=== PATIENT | female | born 2000 | race Caucasian/White ===

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

== ENCOUNTER 2021-07-01 14:19 | Emergency (ER) | payer MEDICAID, SELFPAY ==
[2021-07-01 14:20] VITALS: BP 124/83; PULSE 113; RESP 18; TEMP 37.2; O2SAT 98; BMI 24.4
--- NOTE | 2021-07-01 14:40 | CT_ITS ---
STUDY: CT ABDOMEN AND PELVIS WITHOUT CONTRAST REASON FOR EXAM: Female, 21 years old. Pain RADIATION DOSAGE (If Supplied By Facility): CTDIvol = ( 6.06 ) mGy, DLP = ( 280.28 ) mGycm TECHNIQUE: Transaxial images were obtained from the dome of the diaphragm to the symphysis pubis without oral contrast, and without intravenous contrast. Sagittal and coronal images were reconstructed. Individualized dose optimization techniques were used for this CT. COMPARISON: . 04/05/2019 FINDINGS: Lung bases demonstrate no consolidative process. No pericardial effusion. Liver and spleen demonstrate no acute abnormalities. Pancreas and adrenal glands are within normal limits. Nonobstructive bowel gas pattern. Cystic structure in the right adnexa possibly an ovarian cyst measuring up to 2.9 cm. Kidneys demonstrate no evidence for hydronephrosis. Normal caliber of the abdominal aorta. Small hiatal hernia. Sclerosis along the sacroiliac joints. No acute osseous abnormalities in the lumbar spine. Schmorl''s nodes in the lower thoracic and upper lumbar spine IMPRESSION: No evidence for acute appendicitis, diverticulitis or bowel obstruction. No evidence for obstructive uropathy. Right-sided ovarian cyst Electronically Signed: Zen Ellison MD at 16:05 EDT , CT/Abdomen/Pelvis without Cont
--- NOTE | 2021-07-01 14:41 | EDS_ITS ---
HPI HPI - GI History of Present Illness Chief Complaint: Abd Pain Detail of Chief Complaint: Abdominal pain that started 4 days ago Informant: patient Abdominal Pain/Flank Pain Current Severity: Severe Narrative Narrative: Patient presents to the emergency department complaint of abdominal pain insert 4 days ago. Patient describes a burning achy pain that is severe to the right lower quadrant mostly. Today she started noticing it more on the left side as well. She denies any fevers or chills or sweats. She denies any vomiting or diarrhea. Patient states that she missed 3 of her control pills but has not missed a menstrual period. Patient denies any vomiting or diarrhea. She had similar pain in the past and it was related to an ovarian cyst she thinks. Patient denies any abnormal vaginal discharge or bleeding. Prior similar symptoms: Yes [facility] Medical History (Updated 07/01/21 @ 15:[address] Randall Villela, DO) Migraine Home Medications NK 03/12/20 [History Last Taken Unknown] Allergy/AdvReac Type Severity Reaction Status Date / Time peanut Allergy Intermediate Hives Verified 07/01/21 14:21 Penicillins Allergy Intermediate Hives Verified 07/01/21 14:21 Social History Smoking Status: Current every day smoker tobacco type: e-cigarettes ROS ROS ED Constitutional Constitutional ED: Reports systems reviewed and no addt'l complaints, except as documented; Denies body ache(s), change in weight or chills Eyes Eyes: Denies acute decrease in peripheral vision, change in vision, double vision or loss of vision ENT ENT ED: Reports none; Denies ear pain, lip swelling, loss taste/smell, neck pain, otalgia or sore throat Cardiovascular Cardiovascular: Reports none; Denies abdominal pain, chest pain with activity, leg edema, lightheadedness, palpitations, rapid heart rate or syncope Respiratory/Chest Respiratory/Chest: Reports none; Denies change in mental status, dry cough, dys pnea, hemoptysis, shortness of breath at rest or shortness of breath with exertion Gastrointestinal Gastrointestinal: Reports none and abdominal pain; Denies change in stool character, diarrhea, hematemesis, hematochezia, melena, rectal bleeding or vomiting Genitourinary Genitourinary ED: Reports none; Denies abdominal discomfort, anuria, dysuria, genital pain or polyuria Musculoskeletal Musculoskeletal: Reports none; Denies arthralgias, back pain, difficulty walking, extremity pain, muscle weakness or myalgias Integumentary Reports none; Denies abscess or rash Neurologic Neurologic: Reports none; Denies abnormal gait, confusion, focal weakness, frequent falls, headache(s), loss of vision, numbness, paresthesias, radicular pain, vertigo or weakness Psychiatric Psychiatric: Reports systems reviewed and no addt'l complaints, except as documented and none; Denies behavioral changes, confusion, difficulty concentrating, hallucinations, suicidal ideation, tactile hallucinations or visual hallucinations Endocrine Endocrinology: Denies none, cold intolerance, excessive sweating, fatigue or heat intolerance Hematologic/Lymphatic Hematologic/Lymphatic: Reports none; Denies anemia, easy bleeding or easy bruising Allergic/Immunologic Allergic/Immunologic ED: Denies as per HPI, none, lip swelling, mouth swelling, throat swelling, tongue swelling or hives EXAM Physical Exam Const Vital Signs: 07/01/21 14:20 Temperature 99 F Temperature Source Temporal Pulse Rate 113 H Respiratory Rate 18 Blood Pressure 124/83 H Blood Pressure Mean 96 Pulse Ox 98 Oxygen Delivery Method Room Air Positive well nourished and well developed General Appearance ED: well developed and NAD HEENT Reports TM's clear and moist mucous membranes normocephalic and atraumatic; Negative for trauma or tenderness Tympanic Membrane ED: Yes TM's clear Eyes PERRL and EOMs intact bilaterally General Eye ED: Negative for pale conjunctiva or scleral icterus Neck no lymphadenopathy, supple and no JVD General: Negative for tenderness Chest Wall inspection of chest normal and palpation of chest normal Chest: Negative for tenderness Resp normal respiratory effort and clear to auscultation bilaterally Effort and Inspection: Negative for respiratory distress or pain with movement Auscultation: Negative for rhonchi, wheezes or diminished lung sounds Cardio regular rate, regular rhythm, S1 normal heart sound, S2 normal heart sound and no murmurs Peripheral Pulses: pulses 2+ throughout GI normal to inspection, nondistended, normoactive bowel sounds, soft to palpation, non-tender, non-distended and no masses GI Narrative: Patient with diffuse tenderness palpation over the right lower quadrant as well as the right upper quadrant and left lower quadrant. There is no rebound, rigidity, or peritoneal signs. Palpation: tender Back/Spine no CVA tenderness and no thoracic nor lumbar tenderness Extremity normal to inspection General Extremety ED: Negative for edema General Extremity: Negative for edema Neuro oriented x3, CN's II-XII intact bilaterally, no sensory deficits noted and gait normal Sensorium / Orientation: awake, alert, oriented to person, oriented to place and oriented to time Motor Exam: strength 5/5 throughout and strength abnormal Psych mental status grossly normal Skin no rashes or lesions noted and no wounds MDM MDM MDM Narrative Medical decision making narrative: IV line established on arrival. Patient did not want thing for pain. CBC with differential was normal. Other lab results and CT as well as urine pending. Care of patient turned over to evening physician awaiting lab and CT results and final disposition Lab Data Attestation: I reviewed the patient's lab results. Labs: Laboratory Results - last 24 hr 07/01/21 14:54 WBC 9.3 RBC 4.95 Hgb 16.5 H Hct 47.3 H MCV 95.6 MCH 33.3 H MCHC 34.9 RDW Std Deviation 47.0 H RDW Coeff of Frances 13.2 Plt Count 289 MPV 8.9 Immature Gran % (Auto) 0.300 Neut % (Auto) 72.7 H Lymph % (Auto) 21.3 [place] % (Auto) 4.3 Eos % (Auto) 1.0 Baso % (Auto) 0.4 Absolute Neuts (auto) 6.8 Absolute Lymphs (auto) 1.98 Nucleated RBC % 0 Discharge Plan Triage Chief Complaint: Abd Pain ED Provider: Randall Villela Dx/Rx/DC Orders Clinical Impression: Abdominal pain Prescriptions: No Action NK RF: 0 Primary Care Provider: Care Physician,No Primary Referrals: Care Physician,No Primary [Primary Care Provider] -
[2021-07-01] MEDS: 0.9% Normal Saline 1,000 ML 125 ML IV (15:01)
[2021-07-01 15:02] LABS: Absolute Lymphocyte Count 1.98 X10^3/uL (0.83-4.51); Absolute Neutrophil Count 6.8 X10^3/uL (2.0-7.7); Basophil# 0.04 X10^3/uL; Basophil% 0.4 % (0-1); Eosinophil# 0.09 X10^3/uL; Hematocrit 47.3 % (37-47); Hemoglobin 16.5 g/dL (12.0-15.0); Lymphocyte # 1.98 X10^3/ul (0.83-4.51); Lymphocyte % 21.3 % (19-41); Mean Corp Hgb Conc 34.9 g/dL (32-36); Mean Corpuscular Hgb 33.3 pg (27.0-32.0); Mean Corpuscular Volume 95.6 fL (81-99); Mean Platelet Vol. 8.9 fl (6.2-12.0); Monocyte% 4.3 % (0-10); NRBC Flagged by Analyzer 0 % (0-5); Neutrophil # 6.77 X10^3/uL (2.7-7.7); Neutrophil % 72.7 % (47-70); Platelet Count 289 K/mm3 (150-450); RBC Distribution Width CV 13.2 % (11.6-14.6); Red Blood Count 4.95 M/mm3 (4.2-5.4); White Blood Count 9.3 K/mm3 (4.4-11.0)
[2021-07-01 15:21] LABS: Mucous, Urine 0 SEEN /hpf (<or=2+)
[2021-07-01 15:22] LABS: ALB/GLOB Ratio 1.1 RATIO (0.9-2.4); AST(SGOT) 20 U/L (15-37); Alanine Aminotransfer ALT/SGPT 22 U/L (13-56); Albumin, Serum 4.1 g/dL (3.2-5.0); Alkaline Phosphatase 137 U/L (45-117); Anion Gap 6 (5-15); BUN 6 mg/dL (7-18); BUN/Creat Ratio 7.2 RATIO (10-20); Calcium,Total 9.5 mg/dL (8.5-10.1); Chloride 105 mmol/L (98-107); Creatinine, Serum 0.84 mg/dL (0.55-1.02); EST Glomerular Filtration Rate 92 mL/min (>60); Est Glom Filt Rate - Afr Amer 111 mL/min (>60); Estimated Creatinine Clearance 76.74 ml/min; Globulin 3.7 g/dL (2.2-4.2); Glucose 93 mg/dL (74-106); Potassium 3.7 mmol/L (3.5-5.1); Protein, Total 7.8 g/dL (6.4-8.2); Sodium Level 137 mmol/L (136-145)
[2021-07-01 15:27] LABS: Internal QC Validated? YES +Cl - CLEAR BKGD; Pregnancy, Serum, hCG Quali. NEGATIVE Negative
[2021-07-01 15:28] LABS: Color, Urine Yellow (Yellow); Glucose, Dipstick Normal (Normal); Ketone-Dipstick Negative (Negative); Leukocyte Esterase-Dipstick 100 /ul (Negative); Nitrite-Dipstick Negative (Negative); Occult Blood-Urine 25 /ul (Negative); Protein-Dipstick Negative (Negative); Urine Bilirubin Dipstick Negative (Negative); Urine Clarity Sl. Cloudy (Clear); Urine Urobilinogen Normal (Normal)
[2021-07-01 15:41] LABS: Squamous Epithelial Cells - UA 0-5 SEEN /hpf (5-10); White Blood Cells 0-5 SEEN /hpf (0-5)
[2021-07-01 15:42] LABS: Bacteria RARE /hpf (None Seen)
[2021-07-01 15:43] LABS: Red Blood Cells-Urine 0-5 SEEN /hpf (0-5)
[2021-07-01] MEDS: Ketorolac 30 MG/ML Syringe IV (16:03)
== END 2021-07-01 16:23 | disposition home or self-care (01) ==
PROVIDERS: Emergency Provider Emergency Medicine; Visit Provider Emergency Medicine
DX: N83.201 Unspecified ovarian cyst, right side (principal); F17.290 Nicotine dependence, other tobacco product, uncomplicated
CPT/HCPCS: 74176; 80053; 81001; 84703; 85025; 96361; 96374; 99283; J7030; A4216

== ENCOUNTER 2021-11-05 21:39 | Emergency (ER) | payer MEDICAID, SELFPAY ==
[2021-11-05 21:40] VITALS: BP 106/75; PULSE 115; RESP 15; TEMP 36.8; O2SAT 99; BMI 22.6
--- NOTE | 2021-11-05 22:31 | US_ITS ---
STUDY: FIRST TRIMESTER OBSTETRICAL ULTRASOUND REASON FOR EXAM: Female, 21 years old RLQ pain / ? ectopic LMP: 09/14/2021 TECHNIQUE: Transvaginal TECHNICAL QUALITY: Adequate. PRIOR ULTRASOUND: None. FINDINGS: There is visualization of a single gestational sac in a normal intrauterine position. The mean sac diameter (MSD) measures 7 mm, indicating an estimated gestational age (EGA) of 5 weeks, 3 days. The gestational sac shape is within normal limits. There is no demonstrated yolk sac. The placenta is non-visualized. There is no demonstrated embryo ( pole). The estimated gestation age (EGA) by LMP is 7 weeks, 3 days. The estimated date of delivery (JOAO) by LMP is 06/21/2022. The estimated gestation age (EGA) by US is 5 weeks, 3 days. The estimated date of delivery (JOAO) by US is 07/05/2022. The uterus measures 8.9 x 5.3 x 4.2. There is no demonstrated uterine fibroid. The cervix is closed. The right ovary measures 3.7 x 2.8 x 2.9 cm. Corpus luteal cyst measuring 2 x 2 x 2.3 cm. There is no visualized right adnexal mass or complex lesion. The left ovary measures 3 x 2.2 x 1.6 cm. There is no left ovarian cyst. There is no visualized left adnexal mass or complex lesion. There is a moderate amount of fluid in the cul de sac. US/Transvaginal w/Preg US IMPRESSION: Intrauterine gestational sac is noted. There is no evidence of yolk sac or pole at this time. Likely early . No adnexal masses, however moderate free fluid. Recommend clinical correlation and quantitative beta-hCG. Ectopic is not fully excluded versus blighted ovum. Electronically Signed: Elmo An DO at 23:57 EDT ,
[2021-11-05 22:38] LABS: Mucous, Urine 0 SEEN /hpf (<or=2+)
[2021-11-05 22:44] LABS: Color, Urine Yellow (Yellow); Glucose, Dipstick Normal (Normal); Ketone-Dipstick Negative (Negative); Leukocyte Esterase-Dipstick Negative /ul (Negative); Nitrite-Dipstick Negative (Negative); Occult Blood-Urine 50 /ul (Negative); Protein-Dipstick 15 mg/dl (Negative); Urine Bilirubin Dipstick Negative (Negative); Urine Clarity Clear (Clear); Urine Urobilinogen 1 mg/dl (Normal)
[2021-11-05] MEDS: 0.9% Normal Saline 1,000 ML 999 ML IV (22:44)
--- NOTE | 2021-11-05 22:47 | ED.VIS.FEGU ---
HPI HPI - Female History of Present Illness Chief Complaint: Female C/O Narrative Narrative: Patient is a female approximately 8 weeks . She states she came down with sore throat muscle aches congestion cough and headache about 6 days ago and tested positive for COVID 4 days ago. She states she is been dealing with that but then on Saturday developed pain in the right lower quadrant which increased today. She states there is been no vaginal bleeding or discharge no dysuria. She denies any nausea or vomiting or diarrhea associated with this. She states that she contacted her OB who advised her to come the hospital secondary to her increasing pain in the right lower quadrant and therefore she presents at this time. [facility] Medical History Migraine Ovarian cyst Allergy/AdvReac Type Severity Reaction Status Date / Time peanut Allergy Intermediate Hives Verified 11/05/21 21:43 Penicillins Allergy Intermediate Hives Verified 11/05/21 21:43 Social History Smoking Status: Current every day smoker tobacco type: e-cigarettes ROS ROS ED Constitutional Constitutional ED: Denies chills or fever(s) ENT ENT ED: Reports sore throat Cardiovascular Cardiovascular: Denies chest pain Respiratory/Chest Respiratory/Chest: Reports cough; Denies dyspnea Gastrointestinal Gastrointestinal: Reports abdominal pain; Denies diarrhea, nausea or vomiting Genitourinary Genitourinary ED: Reports other Details: No vaginal bleeding or discharge ; Denies dysuria or hematuria Musculoskeletal Musculoskeletal: Reports myalgias Integumentary Denies rash Neurologic Neurologic: Reports headache(s) Hematologic/Lymphatic Hematologic/Lymphatic: Denies easy bleeding or easy bruising EXAM Physical Exam Const Vital Signs: 11/05/21 21:40 Temperature 98.3 F Temperature Source Temporal Pulse Rate 115 H Respiratory Rate 15 Blood Pressure 106/75 Blood Pressure Mean 85 Pulse Ox 99 Oxygen Delivery Method Room Air Positive well nourished and well developed General Appearance ED: well developed HEENT Reports moist mucous membranes HEENT Narrative: Cobblestoning the posterior pharynx consistent with sinus drainage but no airway edema or compromise. No signs of secondary infection in the posterior pharynx Eyes PERRL and EOMs intact bilaterally Neck supple Neck Narrative: Positive anterior cervical of adenopathy Resp normal respiratory effort and clear to auscultation bilaterally Cardio regular rate and regular rhythm Rate: other Other Details: Radial pulses are plus 2 out of 4 bilaterally are equal and symmetric GI non-distended GI Narrative: Pain with palpation greatest in the right lower quadrant with voluntary guarding at the site. Positive heel strike psoas and obturator sign. Auscultation: normoactive bowel sounds Palpation: soft Back/Spine no CVA tenderness Extremity normal to inspection Neuro oriented x3, CN's II-XII intact bilaterally and no sensory deficits noted Sensorium / Orientation: alert Psych mental status grossly normal Skin no rashes or lesions noted MDM MDM MDM Narrative Medical decision making narrative: Patient presented to the ER afebrile. She denied any vaginal bleeding or discharge. She did have report of headache sore throat and myalgias but has recently been diagnosed with COVID. With her pain in the right lower quadrant there is concern this could be an ectopic versus appendicitis or kidney stone. Patient did not have any flank pain however to suggest stone. She also did not have generalized abdominal pain migrating to the right lower quadrant nor is she having anorexia or loose stool symptoms to suggest this. I discussed the case with her [employer] and we elected to start with an ultrasound to rule out ectopic . The ultrasound showed an intrauterine gestation without cardiac activity. This is most like related to young gestational age. There is also a right-sided ovarian cyst which is most likely cause of the patient's pain. I informed the OB of the patient's laboratory results as well as her ultrasound result. At this time as the ultrasound is indicating there is an intrauterine gestation without obvious ectopic they do not feel there is need for further work-up. I discussed the patient's +1 bacteria in the urine but as she does not having dysuria OB wants to wait and see if her urine does show signs of infection their evaluation and therefore I would not provide antibiotic. The patient was informed of her laboratory and ultrasound results. She does agree to follow-up with [employer] for repeat blood work as well as possible ultrasound but agrees to return to the ER if she has worsening symptoms. Lab Data Attestation: I reviewed the patient's lab results. Labs: Laboratory Results - last 24 hr 11/05/21 11/05/21 11/05/21 22:05 22:30 22:41 WBC 2.6 L RBC 4.11 L Hgb 13.4 Hct 38.2 MCV 92.9 MCH 32.6 H MCHC 35.1 RDW Std Deviation 41.5 RDW Coeff of Frances 12.2 Plt Count 121 L MPV 9.9 Immature Gran % (Auto) 0.000 Neut % (Auto) 35.9 L Lymph % (Auto) 50.4 H Pickett % (Auto) 12.9 H Eos % (Auto) 0.4 Baso % (Auto) 0.4 Absolute Neuts (auto) 0.9 L Absolute Lymphs (auto) 1.29 Nucleated RBC % 0 Differential Comment SCANNED Sodium Potassium Chloride Carbon Dioxide Anion Gap BUN Creatinine Estim Creat Clear Calc Est GFR (MDRD) Af Amer Est GFR (MDRD) Non-Af BUN/Creatinine Ratio Glucose Lactic Acid 0.7 Calcium HCG, Quant Urine Color Yellow Urine Clarity Clear Urine pH 6.0 Ur Specific Hockley 1.020 Urine Protein 15 H Urine Glucose (UA) Normal Urine Ketones Negative Urine Occult Blood 50 H Urine Nitrite Negative Urine Bilirubin Negative Urine Urobilinogen 1 H Ur Leukocyte Esterase Negative Urine RBC 0-5 SEEN Urine WBC 0-5 SEEN Ur Squamous Epith Cells 0-5 SEEN Urine Bacteria 1+ Urine Mucus 0 SEEN 11/05/21 11/05/21 22:41 22:41 WBC RBC Hgb Hct MCV MCH MCHC RDW Std Deviation RDW Coeff of Frances Plt Count MPV Immature Gran % (Auto) Neut % (Auto) Lymph % (Auto) Pickett % (Auto) Eos % (Auto) Baso % (Auto) Absolute Neuts (auto) Absolute Lymphs (auto) Nucleated RBC % Differential Comment Sodium 138 Potassium 3.5 Chloride 107 Carbon Dioxide 25.0 Anion Gap 6 BUN 11 Creatinine 0.61 Estim Creat Clear Calc 116.35 Est GFR (MDRD) Af Amer 160 Est GFR (MDRD) Non-Af 132 BUN/Creatinine Ratio 18.0 Glucose 81 Lactic Acid Calcium 8.7 HCG, Quant 2118 H Urine Color Urine Clarity Urine pH Ur Specific Hockley Urine Protein Urine Glucose (UA) Urine Ketones Urine Occult Blood Urine Nitrite Urine Bilirubin Urine Urobilinogen Ur Leukocyte Esterase Urine RBC Urine WBC Ur Squamous Epith Cells Urine Bacteria Urine Mucus Radiography Diagnostic Testing: Clinical Impression(s) from Imaging Studies Obstetrics Ultrasound 11/05/21 22:31 IMPRESSION: Intrauterine gestational sac is noted. There is no evidence of yolk sac or pole at this time. Likely early . No adnexal masses, however moderate free fluid. Recommend clinical correlation and quantitative beta-hCG. Ectopic is not fully excluded versus blighted ovum. Electronically Signed: Elmo An at 23:57 EDT , Discharge Plan Triage Chief Complaint: Female C/O ED Provider: Joe Quezada Dx/Rx/DC Orders Clinical Impression: Abdominal pain during in first trimester, Ovarian cyst Instructions: Ovarian Cysts, ED Abdominal Pain, Early Primary Care Provider: Care Physician,No Primary Referrals: Kylee De La Cruz CNM [Med Staff - Adv Practice Prof] - 3-5 Days Care Physician,No Primary [Primary Care Provider] - Activity Restrictions/Additional Instructions: Please follow-up with your [employer] for repeat evaluation. If you develop worsening pain fever over 100.4 or vaginal bleeding please return to the ER for repeat evaluation Disposition Disposition: Home, Self Care
[2021-11-05 22:54] LABS: Absolute Lymphocyte Count 1.29 X10^3/uL (0.83-4.51); Absolute Neutrophil Count 0.9 X10^3/uL (2.0-7.7); Basophil# 0.01 X10^3/uL; Basophil% 0.4 % (0-1); Eosinophil# 0.01 X10^3/uL; Eosinophils% 0.4 % (0-5); Hematocrit 38.2 % (37-47); Hemoglobin 13.4 g/dL (12.0-15.0); Lymphocyte # 1.29 X10^3/ul (0.83-4.51); Lymphocyte % 50.4 % (19-41); Mean Corp Hgb Conc 35.1 g/dL (32-36); Mean Corpuscular Hgb 32.6 pg (27.0-32.0); Mean Corpuscular Volume 92.9 fL (81-99); Mean Platelet Vol. 9.9 fl (6.2-12.0); Monocyte# 0.33 X10^3/uL; Monocyte% 12.9 % (0-10); NRBC Flagged by Analyzer 0 % (0-5); Neutrophil # 0.92 X10^3/uL (2.7-7.7); Neutrophil % 35.9 % (47-70); POSITIVE DIFFERENTIAL YES; POSITIVE MORPHOLOGY YES; Platelet Count 121 K/mm3 (150-450); RBC Distribution Width CV 12.2 % (11.6-14.6); RBC Distribution Width SD 41.5 fl (35.1-43.9); Red Blood Count 4.11 M/mm3 (4.2-5.4); White Blood Count 2.6 K/mm3 (4.4-11.0)
[2021-11-05 23:05] LABS: Differential Indicated SCAN CRITERIA MET
[2021-11-05 23:09] LABS: Bacteria 1+ /hpf (None Seen); Red Blood Cells-Urine 0-5 SEEN /hpf (0-5); Squamous Epithelial Cells - UA 0-5 SEEN /hpf (5-10); White Blood Cells 0-5 SEEN /hpf (0-5)
[2021-11-05 23:13] LABS: Differential Comment SCANNED
[2021-11-05 23:15] LABS: Anion Gap 6 (5-15); BUN 11 mg/dL (7-18); Calcium,Total 8.7 mg/dL (8.5-10.1); Chloride 107 mmol/L (98-107); Creatinine, Serum 0.61 mg/dL (0.55-1.02); EST Glomerular Filtration Rate 132 mL/min (>60); Est Glom Filt Rate - Afr Amer 160 mL/min (>60); Estimated Creatinine Clearance 116.35 ml/min; Glucose 81 mg/dL (74-106); Potassium 3.5 mmol/L (3.5-5.1); Sodium Level 138 mmol/L (136-145)
[2021-11-05 23:27] LABS: Lactic Acid 0.7 mmol/L (0.4-1.9)
[2021-11-05 23:41] LABS: hCG Titer Quant., Serum 2118 mIU/mL (1-3)
[2021-11-06 00:34] VITALS: BP 97/64; PULSE 87
== END 2021-11-06 00:35 | disposition home or self-care (01) ==
PROVIDERS: Emergency Provider Emergency Medicine; Visit Provider Emergency Medicine
DX: O99.891 Other specified diseases and conditions complicating pregnancy (principal); R10.31 Right lower quadrant pain; O98.511 Other viral diseases complicating pregnancy, first trimester; U07.1 COVID-19; O34.81 Maternal care for other abnormalities of pelvic organs, first trimester; N83.201 Unspecified ovarian cyst, right side; O99.331 Smoking (tobacco) complicating pregnancy, first trimester; F17.290 Nicotine dependence, other tobacco product, uncomplicated; Z3A.08 8 weeks gestation of pregnancy
CPT/HCPCS: 76817; 80048; 81001; 83605; 84702; 85025; 86900; 86901; 96360; 99282; J7030; A4216

== ENCOUNTER 2022-04-24 12:35 | Outpatient (CLI) | payer MEDICAID, SELFPAY ==
[2022-04-24 12:41] VITALS: BMI 22.4
[2022-04-24 12:42] VITALS: BP 97/52; PULSE 98; PULSE 99; TEMP 36.2; O2SAT 100
[2022-04-24] MEDS: Acetaminophen 500 MG Tablet 1000 MG PO (13:47)
--- NOTE | 2022-04-24 17:15 | OB.TRI.NOTE ---
HPI - General HPI Narrative FRANK ARCHULETA, is a 22 F at 29.1 weeks who presents to triage for extended monitoring due to a fall. Patient stated she slipped and fell down 6 steps and landed on butt and side. No abdominal trauma. Positive movement. Denies any cramps or contractions. Denies any vaginal bleeding or loss of fluid. Maternal Data Information JOAO Calculator Estimated Delivery Date Method Current WG Current Estimate 07/09/22 Manual 29w 1d PFSH PFSH Medical History Migraine Ovarian cyst Allergy/AdvReac Type Severity Reaction Status Date / Time peanut Allergy Intermediate Hives Verified 11/05/21 21:43 Penicillins Allergy Intermediate Hives Verified 11/05/21 21:43 Social History Smoking Status: Current every day smoker tobacco type: e-cigarettes History Elective abortions Hx Para 0 Spontaneous abortions Hx # Term Pregnancies Ectopic pregnancies Hx # Pregnancies Multiple births # of living children ROS Eyes Eyes: Denies blurry vision Cardiovascular Cardiovascular: Reports none; Denies chest pain at rest, chest pain with activity or dizziness Respiratory/Chest Respiratory/Chest: Denies cough or dyspnea Gastrointestinal Gastrointestinal: Reports none and other; Denies diarrhea or vomiting Genitourinary Genitourinary: Denies dysuria Musculoskeletal Musculoskeletal: Reports none Integumentary Integumentary: Reports none; Denies rash Neurologic Neurologic: Denies dizziness, headache(s) or other visual disturbances Psychiatric Psychiatric: Reports none Physical Exam Const alert and no apparent distress General Appearance: cooperative Orientation / Consciousness: awake Exam Limitations: no limitations HEENT normocephalic Eyes General Eye: normal appearance of both eyes Neck full ROM Chest inspection of chest normal Resp normal respiratory effort and normal air movement Effort and Inspection: symmetric chest movement Auscultation: clear to auscultation bilaterally Cardio regular rate GI soft to palpation, non-tender and non-distended Inspection: and other Back/Spine normal ROM Extremity full ROM, normal capillary refill and no calf tenderness Skin no rashes or lesions noted Neuro oriented x3 and CN's II-XII intact bilaterally Psych mental status grossly normal NST FHR Rate Baby A Baseline: 145 Variability:: Moderate Accelerations:: 10 x 10 Decelerations:: None NST Reactive:: Appropriate for gestational age Assessment & Plan (1) 29 weeks gestation of : (2) Fall: PLAN: Plan Extended monitoring NST appropriate for gestational age TOCO showed 1 contraction- patient did not feel contraction D/C home with follow up in office for scheduled visit
== END 2022-04-24 14:25 | disposition home or self-care (01) ==
LOC: WPOUT 12:39 → WP 12:40
PROVIDERS: Visit Provider Advanced Practice Midwife
DX: Z04.3 Encounter for examination and observation following other accident (principal); O99.333 Smoking (tobacco) complicating pregnancy, third trimester; F17.290 Nicotine dependence, other tobacco product, uncomplicated; Z3A.29 29 weeks gestation of pregnancy
CPT/HCPCS: 59025; 59050; 99221; G0378

== ENCOUNTER 2022-06-20 09:25 | Inpatient (IN) | payer MEDICAID, SELFPAY ==
[2022-06-20] VITALS (47 sets, daily range): BP systolic 86–143; BP diastolic 51–77; PULSE 69–150; TEMP 36.2–36.6; O2SAT 74–100; BMI 23.1
[2022-06-20 09:22] LABS: ROM Internal Control Test YES-OK TO RESULT pt. (Internal QC)
[2022-06-20 09:23] LABS: ROM Patient Test POSITIVE (Negative)
[2022-06-20] MEDS: Lactated Ringers 1,000 ML 50 ML IV (10:16)
[2022-06-20 10:41] LABS: Absolute Lymphocyte Count 1.75 X10^3/uL (0.83-4.51); Absolute Neutrophil Count 7.1 X10^3/uL (2.0-7.7); Basophil# 0.03 X10^3/uL; Basophil% 0.3 % (0-1); Eosinophil# 0.04 X10^3/uL; Eosinophils% 0.4 % (0-5); Hematocrit 38.3 % (37-47); Hemoglobin 12.9 g/dL (12.0-15.0); Lymphocyte # 1.75 X10^3/ul (0.83-4.51); Lymphocyte % 18.6 % (19-41); Mean Corp Hgb Conc 33.7 g/dL (32-36); Mean Corpuscular Hgb 32.8 pg (27.0-32.0); Mean Corpuscular Volume 97.5 fL (81-99); Mean Platelet Vol. 10.4 fl (6.2-12.0); Monocyte# 0.48 X10^3/uL; Monocyte% 5.1 % (0-10); NRBC Flagged by Analyzer 0 % (0-5); Neutrophil # 7.11 X10^3/uL (2.7-7.7); Neutrophil % 75.4 % (47-70); Platelet Count 205 K/mm3 (150-450); RBC Distribution Width CV 13.8 % (11.6-14.6); RBC Distribution Width SD 49.4 fl (35.1-43.9); Red Blood Count 3.93 M/mm3 (4.2-5.4); White Blood Count 9.4 K/mm3 (4.4-11.0)
[2022-06-20] MEDS: Oxytocin 15 Units/NS 250ml 15 UNITS/250 ML IV.SOLN 2 UNITS IV (11:23)
[2022-06-20 11:39] LABS: Syphilis Antibodies Non-reactive
[2022-06-20 12:55] LABS: Amphetamine Urine VISTA NEGATIVE (<1000 ng/mL); Barbiturate Urine VISTA NEGATIVE (< 200 ng/mL); Benzodiazepine Urine VISTA NEGATIVE (< 200 ng/mL); Cocaine Urine VISTA NEGATIVE (< 300 ng/mL); Ecstacy Urine VISTA NEGATIVE (< 500 ng/mL); Methadone Urine VISTA NEGATIVE (< 300 ng/mL); PCP Urine VISTA NEGATIVE (< 25 ng/mL); THC Urine VISTA NEGATIVE (< 50 ng/mL); Vista UDS pH Range 7
--- NOTE | 2022-06-20 12:58 | HP.PCM.OB_ITS ---
HPI - General General Date of Admission: 06/20/22 Date of Service: 06/20/22 Chief Complaint: SROM HPI Narrative FRANK ARCHULETA is a 22-year-old 2 para 1-0-0-1 with EDC 07/09/2022 presents complaining of spontaneous rupture membranes earlier this morning. Some irregular contractions. No gross vaginal bleeding. Patient has a significant past medical history of depression, nicotine use, nausea and vomiting early in . Patient has remote history of drug use but denies any drug use during the or in 2 to 3 years. She has a remote history of chlamydia that was treated and repeat testing was negative Maternal Data Information JOAO Calculator Estimated Delivery Date Method Current WG Current Estimate 07/09/22 Manual 37w 2d Final JOAO: 07/09/22 Gestational age: 37 2 [facility] Medical History (Updated 06/20/22 @ 13:[address] Carrie Ahmadi MD) Depression Depression Migraine Ovarian cyst depression Home Medications [id number] 1 mg tablet 1 tab PO DAILY 04/24/22 [History Last Taken 04/24/22 10:00] Allergy/AdvReac Type Severity Reaction Status Date / Time peanut Allergy Intermediate Hives Verified 04/24/22 18:21 Penicillins Allergy Intermediate Hives Verified 04/24/22 18:21 Social History Smoking Status: Former smoker History Elective abortions Hx Para 1 Spontaneous abortions Hx # Term Pregnancies Ectopic pregnancies Hx # Pregnancies Multiple births # of living children ROS Constitutional Constitutional: Denies fatigue, fever(s) or malaise Eyes Eyes: Denies change in vision ENT HEENT: Denies dizziness or headache(s) Cardiovascular Cardiovascular: Denies chest pain, dyspnea or lightheadedness Respiratory/Chest Respiratory/Chest: Denies cough or dyspnea Gastrointestinal Gastrointestinal: Denies change in bowel habits Genitourinary Genitourinary: Denies burning urination or genital lesions Integumentary Integumentary: Denies rash Neurologic Neurologic: Denies confusion, dizziness, headache(s), numbness or weakness Vital Signs Vital Signs Vital Signs: 06/20/22 10:28 06/20/22 10:28 06/20/22 11:09 Pulse Rate 93 96 Blood Pressure 106/66 BP Systolic 106 BP Diastolic 66 Pulse Ox 06/20/22 11:09 06/20/22 11:33 06/20/22 11:33 Pulse Rate 91 Blood Pressure 86/54 L BP Systolic 86 BP Diastolic 54 Pulse Ox 100 06/20/22 11:33 06/20/22 12:14 06/20/22 12:14 Pulse Rate 96 Blood Pressure 101/60 BP Systolic 101 BP Diastolic 60 Pulse Ox 99 Weight Weight: 57.266 kg Body Mass Index (BMI) 23.1 Physical Exam Const alert and no apparent distress General Appearance: cooperative HEENT normocephalic Resp normal respiratory effort Cardio regular rate GI soft to palpation GI Narrative: gravid, nontender, appropriate for gestational age Extremity no calf tenderness General Extremity: edema Skin no wounds Rashes: No rashes noted Psych activity/motor behavior normal Labs Labs Labs: Blood Type A POSITIVE Antibody Screen NEGATIVE Hct 38.3 % (37-47) Hgb 12.9 g/dL (12.0-15.0) Obstetrics US Syphilis Total Ab Non-reactive Rhogam given: No Assessment & Plan (1) 37 weeks gestation of : (2) High risk multigravida in third trimester: (3) SROM (spontaneous rupture of membranes):
[2022-06-20] MEDS: LACTATED RINGERS 500 ML 999 ML IV (17:23)
[2022-06-20] MEDS: fentaNYL-bupivacaine (epidural) 100 ML BAG EPIDURAL ×2 (18:28→23:05)
[2022-06-20] MEDS: Lactated Ringers 1,000 ML 250 ML IV (20:21)
[2022-06-20] MEDS: Acetaminophen 500 MG Tablet PO (23:05)
--- NOTE | 2022-06-20 23:46 | EX.PCM.OBRPT ---
Assessment & Plan (1) 37 weeks gestation of : (2) SROM (spontaneous rupture of membranes): (3) (spontaneous vaginal delivery): Maternal Data Information JOAO Calculator Estimated Delivery Date Method Current WG Current Estimate 07/09/22 Manual 37w 2d Vaginal Delivery Maternal Presentation Maternal Presentation: Spontaneous Rupture of Membranes and Medically Indicated Induction Type of Induction: Pitocin Medical Reason for Induction: Premature Rupture of Membranes Operative Information Date of Procedure: 06/20/22 Pre-Operative Diagnosis: labor Post-Operative Diagnosis: same Surgery / Procedure Performed: Spontaneous Vaginal Delivery Type of Anesthesia: Epidural Special Medications: none Drain: Cintron to straight drain Estimated Blood Loss: 300 Time of Delivery: 23:32 Findings Description of Procedure: A vigorous female was delivered JOHN over an intact perineum. The remainder the was delivered with maternal pushing and gentle traction only in less than 15 seconds. The Pitocin infusion was initiated for active management of the third stage. The cord was clamped and cut after 1 minute. The was attended to by the waiting nursing staff. The placenta was delivered spontaneously and intact. The cervix and vagina were intact. Sponge and needle counts were correct. A vaginal sweep was completed by me. Presentation: JHON Amniotic Membrane Rupture Type: Spontaneous Amniotic Fluid Description: Clear Placental Delivery Description: Spontaneous Placenta Disposition: [facility] Cord Vessel Description: 3 Vessels Cord Entanglement: None A Gender: Female (Caleb) (1 minute): 8 (5 minute): 9 Delayed Cord Clamping: Yes Post Vaginal Delivery Medications Given After Delivery: IV Pitocin Episiotomy Description: None Laceration: None Complication Complications: None
[2022-06-21] VITALS (19 sets, daily range): BP systolic 89–112; BP diastolic 51–61; PULSE 63–98; RESP 16–18; TEMP 36.2–36.6; O2SAT 92–100
[2022-06-21] MEDS: Oxytocin 15 Units/NS 250ml 15 UNITS/250 ML IV.SOLN 83 UNITS IV (00:34)
[2022-06-21] MEDS: Ibuprofen 600 MG Tablet PO ×2 (08:49→15:18)
[2022-06-21] MEDS: Senna/Docusate Sodium 1 Tablet PO (08:49)
--- NOTE | 2022-06-21 12:38 | PCM.PN.OB ---
Subjective Subjective Patient seen at bedside. Feeling good. Denies any pain. Ambulating and voiding without difficulty. Bottle feeing . Anticipate discharge home tomorrow. Objective Data Objective Data Vital Signs: Vital Signs Temp Pulse Resp BP Pulse Ox O2 Del Method 98 F 75 18 89/59 L 98 Room Air 06/21/22 08:30 06/21/22 08:30 06/21/22 08:30 06/21/22 08:30 06/21/22 06:00 06/21/22 06:00 Oxygen Delivery Method Room Air Weight: 126 lb 4 oz Body Mass Index (BMI) 23.1 Intake & Output: Intake and Output for Last 24 Hours 06/19/22 06/20/22 06/21/22 23:59 23:59 23:59 Intake Total 1586.34 / 2498.84 1326.16 / 1326.16 Output Total 1000 / 1000 400 / 400 Balance 586.34 / 1498.84 926.16 / 926.16 Lab / Micro Data Result Diagrams: 06/20/22 10:16 Labs: Laboratory Results - last 24 hr 06/20/22 11:35: Urine Opiates Screen NEGATIVE, Urine Methadone Screen NEGATIVE, Ur Barbiturates Screen NEGATIVE, Ur Phencyclidine Scrn NEGATIVE, Ur Amphetamines Screen NEGATIVE, MDMA (Ecstasy) Screen NEGATIVE, U Benzodiazepines Scrn NEGATIVE, Urine Cocaine Screen NEGATIVE, U Cannabinoids Screen NEGATIVE ROS Eyes Eyes: Denies blurry vision, change in vision or spots in vision ENT HEENT: Denies dizziness or headache(s) Cardiovascular Cardiovascular: Denies abdominal pain, chest pain or dyspnea Respiratory/Chest Respiratory/Chest: Denies cough, dyspnea, shortness of breath at rest or shortness of breath with exertion Gastrointestinal Gastrointestinal: Denies abdominal pain, diarrhea or vomiting Genitourinary Genitourinary: Denies change in urinary stream, difficulty urinating or dysuria Musculoskeletal Musculoskeletal: Reports none Integumentary Integumentary: Denies rash Neurologic Neurologic: Denies dizziness, headache(s), memory loss or weakness Physical Exam Const alert and no apparent distress General Appearance: cooperative and comfortable Exam Limitations: no limitations HEENT normocephalic Eyes General Eye: normal appearance of both eyes Neck full ROM General: normal visual inspection Chest Chest: symmetrical chest wall rise Resp normal respiratory effort and normal air movement Effort and Inspection: symmetric chest movement Auscultation: clear to auscultation bilaterally Cardio regular rate and regular rhythm GI normal to inspection, nondistended, normoactive bowel sounds Back/Spine normal ROM Extremity full ROM and no calf tenderness General Extremity: normal exam except as noted Skin no rashes or lesions noted Neuro CN's II-XII intact bilaterally Psych mental status grossly normal Assessment & Plan (1) (spontaneous vaginal delivery): PLAN: Plan PPD 1 Routine care Pain control Anticipate discharge home tomorrow
[2022-06-21] MEDS: Acetaminophen 500 MG Tablet 1000 MG PO (22:12)
[2022-06-22] MEDS: Ibuprofen 600 MG Tablet PO (00:07)
[2022-06-22 04:55] VITALS: BP 96/48; PULSE 62; RESP 16; TEMP 36.3; O2SAT 99
[2022-06-22 07:39] VITALS: BP 95/54; PULSE 78; RESP 16; TEMP 36.4; O2SAT 98
--- NOTE | 2022-06-22 08:40 | PCM.PN.OB ---
Subjective Subjective Denies complaints Objective Data Objective Data Vital Signs: Vital Signs Temp Pulse Resp BP Pulse Ox O2 Del Method 97.5 F L 78 16 95/54 L 98 Room Air 06/22/22 07:39 06/22/22 07:39 06/22/22 07:39 06/22/22 07:39 06/22/22 07:39 06/22/22 07:39 Oxygen Delivery Method Room Air Weight: 126 lb 4 oz Body Mass Index (BMI) 23.1 Intake & Output: Intake and Output for Last 24 Hours 06/20/22 06/21/22 06/22/22 23:59 23:59 23:59 Intake Total 1586.34 / 2498.84 1326.16 / 1326.16 Output Total 1000 / 1000 400 / 400 Balance 586.34 / 1498.84 926.16 / 926.16 Lab / Micro Data Result Diagrams: 06/20/22 10:16 Physical Exam Const alert, oriented x3 and no apparent distress HEENT normocephalic GI soft to palpation, non-tender and non-distended GI Narrative: fundus firm, mid & below umbilicus Extremity normal to inspection and no calf tenderness Assessment & Plan (1) (spontaneous vaginal delivery): COMMENT: PPD#2 PLAN: D/c home
--- NOTE | 2022-06-22 08:41 | DCINST_ITS ---
Discharge Instructions Diet Discharge Diet: No restrictions Activity Discharge Activity: May Shower May resume sexual activity in: 6 weeks Weight Bearing Status: Weight bearing as tolerated Dressing / Incision Call your doctor if you observe: Fever of 101 or Higher, Coldness, Increased Pain, Change in Color, Inability to urinate, Inability to have a bowel movement, Using more than 1 pad per hour, Shortness of breath, Dizziness, Fainting spells, Chest pain, Increased palpitations (irregular heartbeat), Calf discomfort and Uncontrolled pain Follow Up Care Please Follow Up With: Karoline Messina MD When: Follow up in 2 and 6 weeks for visits. Test Results: Test results from this visit will be discussed in further detail at your follow- up appointment, if applicable. Discharge Plan Admission Admit Date/Time: 06/20/22 09:25 Primary Reason for Your Visit: Vaginal delivery Attending Provider: Carrie Ahmadi Primary Care Provider: Care Physician,No Primary Discharge Orders/Prescriptions Prescriptions: New acetaminophen 500 mg Tablet 1,000 mg PO Q6H PRN PRN (Reason: Pain 1-10 Or Fever) Qty: 0 0RF ibuprofen 600 mg Tablet 600 mg PO Q6H PRN PRN (Reason: Pain Score 1-3) Qty: 0 0RF Continued [id number] 1 mg Tablet 1 tab PO DAILY Referrals / Follow Up: Care Physician,No Primary [Primary Care Provider] - Disposition Disposition (needs filled in before D/C Order can be placed): Home, Self Care
== END 2022-06-22 10:10 | disposition home or self-care (01) | DRG 560 ==
LOC: WPOUT 09:27 → WP 09:27
PROVIDERS: Admitting Provider Obstetrics & Gynecology; Referring Provider Obstetrics & Gynecology; Visit Provider Obstetrics & Gynecology
DX: O42.92 Full-term premature rupture of membranes, unspecified as to length of time between rupture and onset of labor (principal); Z37.0 Single live birth; F17.290 Nicotine dependence, other tobacco product, uncomplicated; O99.334 Smoking (tobacco) complicating childbirth; Z3A.37 37 weeks gestation of pregnancy; Z87.59 Personal history of other complications of pregnancy, childbirth and the puerperium
CPT/HCPCS: 59025; 59050; 80307; 84112; 85025; 86780; 86850; 86900; 86901; 99221; J7120; G0378

== ENCOUNTER 2022-10-05 10:59 | Day surgery (SDC) | payer MEDICAID, SELFPAY ==
--- NOTE | 2022-09-24 12:46 | PCM.HP.BLA ---
History and Physical Date of Admission: 10/05/22 HPI: The patient is a 22 year old female presenting for pre-operative visit. She is scheduled for laparoscopic bilateral salpingectomy, for sterilization on 10/05/22. Procedure discussed along with risks, benefits and complications. Other alternatives discussed for management. Consent form signed? Yes. ? ? PAST MEDICAL HISTORY PAST MEDICAL HISTORY Diagnosis Date ? Allergic rhinitis, cause unspecified 11/16/2010 ? Anemia during in third trimester 10/06/2019 ? Chlamydia 2019 ? Depression ? ? fracture 10 years old ? right radius ? History of chlamydia 05/14/2019 ? History of drug abuse in remission (HCC) ? ? History of illicit drug use 05/14/2019 ? 2Patient admits to using multiple drugs in the past. States her drug of choice was Meth. Has used Heroin , cocaine as well. Has not used for about 3 years. FOB also a recovering addict. Discused risks of illicit drugs in . Advised patient we may do random drug screens in and when she presents to L&D. TKRN ? PMH - PAST MEDICAL HISTORY OF 03/2006 ? normal color vision ? depression ? ? ? PAST SURGICAL HISTORY PAST SURGICAL HISTORY Procedure Laterality Date ? NONE ? CURRENT MEDICATIONS Current Outpatient Medications Medication Sig Dispense Refill ? Norethindrone, Contraceptive, (ORTHO MICRONOR) 0.35 mg tablet Take 1 tablet by mouth once daily. 84 tablet 2 ? No current facility-administered medications for this visit. ? ? ALLERGIES: Environmental [Other] and Penicillins ? PERSONAL HISTORY: SOCIAL HISTORY Social History ? Tobacco Use ? Smoking status: Former ? ? Years: 4.00 ? ? Types: Cigarettes ? ? Quit date: 2019 ? ? Years since quittin.4 ? Smokeless tobacco: Never Vaping Use ? Vaping Use: current everyday user ? Start date: 05/14/2018 ? Substances: Nicotine ? Devices: Disposable Substance Use Topics ? Alcohol use: Not Currently ? Drug use: Not Currently ? ? Types: Crystal Meth, Cocaine, Opiates, Heroin, Amphetamines, Marijuana ? FAMILY HISTORY: FAMILY HISTORY FAMILY HISTORY Problem Relation Age of Onset ? Allergies Mother ? ? other (lung issues) Mother ? ? Cancer Father 40 ? Large B cells Lymphoma ? No Known Problems Brother ? ? No Known Problems Maternal Grandmother ? ? Cancer Maternal Grandfather ? ? skin and lung ? Lung Cancer Paternal Grandmother ? ? Cancer Paternal Grandfather ? REVIEW OF SYMPTOMS: GENERAL: denies fevers or chills ENDOCRINOLOGY: has not been on steroids Cardiology : denies palpitations or chest pain Respiratory: denies SOB or cough Hematology: denies history of prolonged bleeding or easy bruising or VTE Allergy: Denies history of personal or family history of allergy to anesthesia ? PHYSICAL EXAMINATION: ? VITALS: Last menstrual period 09/14/2021, not currently . ? GENERAL: The patient is well nourished, well hydrated in no acute distress. , The patient is oriented to time, place, and person. NECK: Supple. No lynphadenopathy, normal thyroid, no thyromegaly. LUNGS: Clear to auscultation bilaterally. no wheezes, rhonchi or rales HEART: Regular rate and rhythm, Normal heart sounds, and No murmurs or gallops ? IMPRESSION: Sterilization request ? PLAN: The risks/benefits/alternatives and personal involved for the planned laparoscopic bilateral salpingectomy were reviewed with the patient. Her questions were answered to her satisfaction and she desires to proceed. Consent was signed. I reviewed with her postop instructions and expectations. We reviewed that if they are any unanticipated anatomical abnormalities that would make bilateral salpingectomy difficult or increased risk of injury to other structures, would proceed with tubal sterilization in another fashion. Patient is comfortable with this if necessary. ? I have reviewed and updated past medical and surgical history, medications and allergies Assessment & Plan Assessment/Plan (1) Sterilization:
[2022-10-05] VITALS (8 sets, daily range): BP systolic 82–103; BP diastolic 42–63; PULSE 63–89; RESP 16; TEMP 36.2–37.1; O2SAT 99–100; BMI 19.3
[2022-10-05 11:30] LABS: Hematocrit 41.1 % (37-47); Hemoglobin 14.4 g/dL (12.0-15.0); Mean Corpuscular Volume 94.1 fL (81-99); Mean Platelet Vol. 9.4 fl (6.2-12.0); Platelet Count 235 K/mm3 (150-450); RBC Distribution Width CV 12.1 % (11.6-14.6); RBC Distribution Width SD 41.9 fl (35.1-43.9); Red Blood Count 4.37 M/mm3 (4.2-5.4); White Blood Count 5.8 K/mm3 (4.4-11.0)
[2022-10-05] MEDS: Lactated Ringers 1,000 ML 15 ML IV ×2 (11:32→15:11)
[2022-10-05 11:33] LABS: Internal QC Validated? YES +Cl - CLEAR BKGD; Pregnancy, Urine Negative Negative
[2022-10-05] MEDS: Ketorolac 30 MG/ML Syringe IV (11:33)
[2022-10-05] MEDS: Acetaminophen 500 MG Tablet 1000 MG PO (11:33)
[2022-10-05 11:40] LABS: International Normalized Ratio 1.1; Prothrombin Time (Protime)PT. 14.1 SECONDS (11.7-14.9)
[2022-10-05 11:41] LABS: Partial Thromboplast Time 32.4 Seconds (24.1-36.2)
[2022-10-05 12:11] LABS: AST(SGOT) 12 U/L (15-37); Alanine Aminotransfer ALT/SGPT 14 U/L (13-56); Albumin, Serum 4.1 g/dL (3.2-5.0); Alkaline Phosphatase 93 U/L (45-117); Globulin 3.1 g/dL (2.2-4.2); Protein, Total 7.2 g/dL (6.4-8.2)
--- NOTE | 2022-10-05 13:00 | FALS_PTH ---
PATIENT: FRANK ARCHULETA LOC: [facility] [place] U#:[id number] AGE/SX: 22/F ROOM: RE10/05/[address]: Dr. Carrie Ahmadi MD : 2000 BED: DIS: 10/05/2022 SPEC #: [id number] RECD: 10/05/22 15:29 STATUS: DOROTHY RESuzy #: [id number] NIKKI: 10/05/22 13:[address]: Carrie Ahmadi DEPT: SURGICAL PATHOLOGY RECD BY: Daina Dowell ENTERED: 10/08/22 08:45 SP TYPE: FALL TUBES OTHR DR: No Primary Care Phys Tissues: Fallopian tube Procedures: Surgery Specimen Level II Surgery Specimen Level IV HEADER OPERATION: Laparoscopic salpingectomy PRE-OP DIAGNOSIS: Sterilization TISSUE SUBMITTED: Bilateral tubes MICROSCOPIC DIAGNOSIS Right and left fallopian tubes, salpingectomies: Complete cross sections of two fallopian tubes. One fallopian tube with benign para tubal cyst. AM;am 7/11/23 MICROSCOPIC DESCRIPTION Slides are reviewed. GROSS DESCRIPTION Received in fixative is one container labeled with the patient's name and designated bilateral fallopian tubes. The specimen consists of bilateral fallopian tubes including fimbrial ends measuring 6 cm in length and 0.5 cm in diameter and 6.0 cm in length and 0.7 cm in diameter. The fallopian tubes are not identified as right or left. Sections reveal unremarkable cut surfaces. A paratubal cyst is also noted measuring 0.5 cm in greatest dimension. [employer] sections are submitted in two cassettes with each cassette containing one fallopian tube, cassette 2 also contains the paratubal cyst./ SJ: 10/08/22 TC:5 CPT: 37778 , 54150
--- NOTE | 2022-10-05 13:42 | PCM.DC ---
Discharge Instructions Diet Discharge Diet: No restrictions (Increase fluid intake for the next 48 hours.) Activity Additional Activity Instructions:: Ambulate often the next week after surgery. Nothing in the vagina for 5 days. Dressing / Incision Call your doctor if your incision/area has: Continuous Slow Oozing, Sudden Increased Bleeding, Increased Pain/ Swelling, Increased Redness and Foul Smelling Discharge Call your doctor if you observe: Fever of 101 or Higher Additional Dressing/Incision Instructions:: Your incisions have skin glue. it can get wet. Leave it on for at least 10 days. Follow Up Care Please Follow Up With: Carrie Ahmadi MD When: Call [phone] for follow-up appointment as needed or send a [employer] message for quesions Test Results: Test results from this visit will be discussed in further detail at your follow-up appointment, if applicable. Discharge Plan Admission Primary Reason for Your Visit: laparoscopic tubal Attending Provider: Carrie Ahmadi Primary Care Provider: Janice Sheth Primary Discharge Orders/Prescriptions Prescriptions: New ibuprofen [ibuprofen] 600 mg tablet 600 mg PO Q6H PRN (Reason: Pain) 10 Days Qty: 30 1RF hydrocodone-acetaminophen 5-325 mg tablet 1 tab PO .qid PRN (Reason: pain) 3 Days Qty: 1 0RF Continued diphenhydramine HCl [Allergy (diphenhydramine)] 25 mg capsule 25 mg PO QHS PRN PRN (Reason: sleep) acetaminophen-caffeine 500-65 mg tablet 1 tab PO Q12H PRN (Reason: pain) Discontinued norethindrone (contraceptive) 0.35 mg tablet 0.35 mg PO DAILY Patient Comments: TAKE 1 TABLET BY MOUTH ONCE DAILY Referrals / Follow Up: Care Physician,Janice Primary [Primary Care Provider] - Disposition Disposition (needs filled in before D/C Order can be placed): Home, Self Care
[2022-10-05] MEDS: Bupivacaine Mpf 0.5% 30 ML VIAL (13:47)
--- NOTE | 2022-10-05 14:09 | OP.PCM_ITS ---
Problems Associated Problem List Diagnoses (1) Sterilization: Report of Operation Date of Procedure: 10/05/22 Pre-Operative Diagnosis: sterilization request Post-Operative Diagnosis: same Surgery/Procedure Performed:: laparoscopic bilateral salpingectomy Description of Surgical Findings:: Normal uterus, tubes and ovaries. Normal cervix and vagina Surgeon: Carrie Ahmadi yarn texture machine operator: None Type of Anesthesia: General Anesthesiologist: Adam Peguero Special Medications: none Specimen's removed: bilateral fallopian tubes Drains: none Estimated Blood Loss (mL): 5 Fluids Replaced: 900 mL Description of Procedure: The patient was taken to the operating room where she was prepped and draped in the dorsolithotomy position. A weighted speculum was placed in the vagina and the anterior lip of the cervix was grasped with a tenaculum. The Lakisha uterine manipulator was placed and the remainder of the instruments were removed from the vagina. Attention was turned to the abdomen. All port sites were infiltrated with 0.5% Marcaine before skin incisions were made. A 5 mm intraumbilical incision was made. The anterior abdominal wall was tented up with 2 towel clamps while a 5 mm blade less trocar and sleeve were inserted with the Visiport. Intraperitoneal placement was confirmed with the laparoscope. The pneumoperi toneum was created and the underlying abdominal contents were intact. The patient was placed in Trendelenburg. Right and left lower quadrant ports were placed under direct visualization lateral to the inferior epigastric vessels. The bowel was swept away and the above findings were noted. The Enseal device was used to clamp seal and transect the antimesenteric portions of the right tube to the cornual insertion of the uterus. The tube was amputated from the uterus and the pedicles were all confirmed to be hemostatic. The same procedure was performed on the contralateral side. The specimens were brought out through a 5 mm port. The pedicles were again examined and found to be hemostatic. The lateral ports were removed under direct visualization and no active bleeding was noted. The pneumoperitoneum was released. The skin incisions were closed with Monocryl suture in a subcuticular fashion and skin glue. The vaginal instruments were removed and the vaginal sweep was completed by me. The entire procedure was performed by me. All sponge and needle counts were correct and the patient was taken to the recovery room in stable condition. Grafts/Implants Used: none Procedure Start Time: 13:47 Procedure Stop Time: 14:07 Complications none Admit VTE Documentation VTE Present on Admission: No VTE Mechan Device Prophylaxis: SCD's VTE Pharm Prophylaxis ordered?: No Reason prophylaxis not ordered:: Procedure Not Indicated
== END 2022-10-05 16:31 | disposition home or self-care (01) ==
LOC: SDC 11:02 → AC 11:03
PROVIDERS: Anesthesiology; Referring Provider Obstetrics & Gynecology; Visit Provider Obstetrics & Gynecology
PROC: (CPT 58661; principal; 2022-10-05 12:45)
DX: Z30.2 Encounter for sterilization (principal); F17.290 Nicotine dependence, other tobacco product, uncomplicated
CPT/HCPCS: 58661; 00840; 80076; 81025; 85027; 85610; 85730; 88302; 88305; J7120; C1760; J2405

== ENCOUNTER 2022-11-07 18:54 | Emergency (ER) | payer MEDICAID, SELFPAY ==
[2022-11-07 18:55] VITALS: BP 99/73; PULSE 100; RESP 14; TEMP 36.6; O2SAT 99; BMI 19.5
--- NOTE | 2022-11-07 20:08 | US_ITS ---
EXAM: US PELVIS TRANSVAGINAL CLINICAL INDICATION: pelvic pain-RLQ TECHNIQUE: Transvaginal pelvic ultrasound was performed with grayscale and color Doppler imaging. Transvaginal imaging was used for better evaluation of the endometrium and adnexa. COMPARISON: No relevant prior studies available. FINDINGS: UTERUS/CERVIX: Uterus is normal in size and echogenicity measuring 7.8 x 3.5 x 5.3 cm. Endometrial thickness is normal measuring 9 mm. There is no uterine mass. RIGHT OVARY: Right ovary measures 4.7 x 2.6 x 3.4 cm. Dominant right ovarian cyst measures 2.7 x 1.8 cm. Arterial and venous flow are documented in the right ovary. LEFT OVARY: Left ovary is normal in size and echogenicity measuring 2.8 x 1.8 x 2.4 cm. No dominant mass or cyst. Arterial and venous flow are documented. FREE FLUID: Trace free fluid in the cul-de-sac. US/Transvaginal Non- IMPRESSION: 1. Trace free fluid, likely physiologic in a patient of reproductive age. 2. Dominant right ovarian cyst/follicle. SRU Consensus Conference guidelines (Akbar, et. al. Radiology 2019;293:359-371) suggest that this follicle or simple cyst is almost certainly benign and no follow-up of this cyst is necessary. Electronically Signed: Roxi Gutiérrez MD at 21:45 EDT Reading Location ID and State: [id number] / Tel , Service support ,
--- NOTE | 2022-11-07 20:09 | EDS_ITS ---
HPI History of Present Illness Chief Complaint: Abd Pain Narrative Narrative: 22-year-old female with right-sided pelvic pain. She is a history of ovarian cyst. Patient states this 1 feels a little worse than previous. Patient reports she recent had her ovarian tubes removed. Denies fever, chills. She does have a little bit of nausea. Denies urinary or vaginal complaints. No history of abdominal trauma. PFSH PFSH Medical History Anemia Anxiety Anxiety Depression Easy bruising Headache, migraine Heartburn Injury of head and neck Marijuana use Migraine Ovarian cyst depression Restless legs Shortness of breath on exertion Sterilization Substance abuse Syncope Vapes nicotine containing substance Home Medications acetaminophen-caffeine 500 mg-65 mg tablet 1 tab PO Q12H PRN pain 09/28/22 [History Last Taken Unknown] diphenhydramine HCl 25 mg capsule (Allergy (diphenhydramine)) 25 mg PO QHS PRN PRN sleep 09/28/22 [History Last Taken Unknown] hydrocodone-acetaminophen 5-325mg 5mg-325mg 1 tab PO .qid PRN pain 3 days #1 TAB 10/05/22 [Rx Last Taken Unknown] ibuprofen 600 mg tablet 600 mg PO Q6H PRN Pain 10 days #30 TABLETS 10/05/22 [Rx Last Taken Unknown] Allergy/AdvReac Type Severity Reaction Status Date / Time peanut Allergy Intermediate Hives Verified 11/07/22 18:58 Penicillins Allergy Intermediate Hives Verified 11/07/22 18:58 Surgical History No history of previous surgery Social History Smoking Status: Current every day smoker tobacco type: e-cigarettes ROS ROS ED Constitutional Constitutional ED: Denies chills, fever(s) or sweats Eyes Eyes: Denies blurry vision or change in vision ENT ENT ED: Denies ear pain or sore throat Cardiovascular Cardiovascular: Denies chest pain, palpitations or racing heartbeat Respiratory/Chest Respiratory/Chest: Denies cough, dyspnea or sputum Gastrointestinal Gastrointestinal: Reports abdominal pain and nausea; Denies constipation, diarrhea or vomiting Genitourinary Genitourinary ED: Denies dysuria, hematuria or urinary frequency Musculoskeletal Musculoskeletal: Denies arthralgias, myalgias or neck pain Integumentary Denies abscess, Abrasions or rash Neurologic Neurologic: Denies headache(s), paresthesias or weakness Psychiatric Psychiatric: Denies anxiety, depression, suicidal ideation or suicidal thoughts Endocrine Endocrinology: Denies polydipsia or polyuria EXAM Physical Exam Const Vital Signs: 11/07/22 18:55 11/07/22 21:16 Temperature 97.8 F Temperature Source Temporal Pulse Rate 100 72 Respiratory Rate 14 16 Blood Pressure 99/73 97/55 L Blood Pressure Mean 81 69 Pulse Ox 99 100 Oxygen Delivery Method Room Air Room Air Positive well nourished and well developed General Appearance ED: well developed HEENT Reports moist mucous membranes Eyes PERRL and EOMs intact bilaterally Resp normal respiratory effort Cardio regular rate and regular rhythm GI GI Narrative: Right-sided pelvic tenderness Palpation: tender Back/Spine no CVA tenderness Neuro oriented x3 and CN's II-XII intact bilaterally Sensorium / Orientation: alert Psych mental status grossly normal MDM MDM MDM Narrative Medical decision making narrative: Presenting with right pelvic pain which been going on for today. She has a history of ovarian cyst. I suspect this is what she is having today. She had recent surgery to remove her move her fallopian tubes. Palsy abdomen is nonperitoneal. There is 1 focal area of tenderness to touch at my fingertip on the right pelvic area. She has not any vaginal or urinary complaints. No fevers at home. Will obtain basic lab work and transvaginal ultrasound to start. Offered patient analgesia and she would declines CBC and BMP are unremarkable. I obtained a transvaginal ultrasound which shows a right-sided ovarian cyst. I recommended follow-up with Dr. Ahmadi she is established with. Patient discharged home in stable condition. Impression: 1. Ovarian cyst Lab Data Attestation: I reviewed the patient's lab results. Labs: Laboratory Results - last 24 hr 11/07/22 11/07/22 20:25 21:10 WBC 7.4 RBC 4.31 Hgb 13.6 Hct 40.5 MCV 94.0 MCH 31.6 MCHC 33.6 RDW Std Deviation 41.9 RDW Coeff of Frances 12.1 Plt Count 231 MPV 9.5 Immature Gran % (Auto) 0.100 Neut % (Auto) 54.8 Lymph % (Auto) 36.4 [place] % (Auto) 6.0 Eos % (Auto) 1.9 Baso % (Auto) 0.8 Absolute Neuts (auto) 4.0 Absolute Lymphs (auto) 2.69 Nucleated RBC % 0 Sodium 140 Potassium 3.8 Chloride 108 H Carbon Dioxide 25.0 Anion Gap 7 BUN 11 Creatinine 0.84 Estim Creat Clear Calc 81.10 Est GFR (MDRD) Af Amer 110 Est GFR (MDRD) Non-Af 91 BUN/Creatinine Ratio 13.1 Glucose 92 Calcium 8.8 B-Natriuretic Peptide < 2.0 Urine Test Negative Radiography Diagnostic Testing: Clinical Impression(s) from Imaging Studies Transvaginal US 11/07/22 20:08 IMPRESSION: 1. Trace free fluid, likely physiologic in a patient of reproductive age. 2. Dominant right ovarian cyst/follicle. SRU Consensus Conference guidelines (Akbar, et. al. Radiology 2019;293:359-371) suggest that this follicle or simple cyst is almost certainly benign and no follow-up of this cyst is necessary. Electronically Signed: Roxi Gutiérrez MD at 21:45 EDT Reading Location ID and State: [id number] / Tel , Service support , Discharge Plan Triage Chief Complaint: Abd Pain ED Provider: Juno Watson Dx/Rx/DC Orders Instructions: ED Ovarian Cyst Prescriptions: No Action diphenhydramine HCl [Allergy (diphenhydramine)] 25 mg capsule 25 mg PO QHS PRN PRN (Reason: sleep) acetaminophen-caffeine 500-65 mg tablet 1 tab PO Q12H PRN (Reason: pain) ibuprofen [ibuprofen] 600 mg tablet 600 mg PO Q6H PRN (Reason: Pain) 10 Days Qty: 30 1RF hydrocodone-acetaminophen 5-325 mg tablet 1 tab PO .qid PRN (Reason: pain) 3 Days Qty: 1 0RF Primary Care Provider: Care Physician,No Primary Referrals: Carrie Ahmadi MD [Med Staff - Active Staff] - 3-5 Days if not improving Care Physician,No Primary [Primary Care Provider] - Disposition Disposition: Home, Self Care
[2022-11-07 20:33] LABS: Absolute Lymphocyte Count 2.69 X10^3/uL (0.83-4.51); Basophil# 0.06 X10^3/uL; Basophil% 0.8 % (0-1); Eosinophil# 0.14 X10^3/uL; Eosinophils% 1.9 % (0-5); Hematocrit 40.5 % (37-47); Hemoglobin 13.6 g/dL (12.0-15.0); Lymphocyte # 2.69 X10^3/ul (0.83-4.51); Lymphocyte % 36.4 % (19-41); Mean Corp Hgb Conc 33.6 g/dL (32-36); Mean Corpuscular Hgb 31.6 pg (27.0-32.0); Mean Platelet Vol. 9.5 fl (6.2-12.0); Monocyte# 0.44 X10^3/uL; NRBC Flagged by Analyzer 0 % (0-5); Neutrophil # 4.04 X10^3/uL (2.7-7.7); Neutrophil % 54.8 % (47-70); Platelet Count 231 K/mm3 (150-450); RBC Distribution Width CV 12.1 % (11.6-14.6); RBC Distribution Width SD 41.9 fl (35.1-43.9); Red Blood Count 4.31 M/mm3 (4.2-5.4); White Blood Count 7.4 K/mm3 (4.4-11.0)
[2022-11-07 21:16] VITALS: BP 97/55; PULSE 72; RESP 16; O2SAT 100
[2022-11-07 21:18] LABS: BNP,B-Type NATRIURETIC PEPTIDE < 2.0 pg/mL (0-100)
[2022-11-07 21:26] LABS: Internal QC Validated? YES +Cl - CLEAR BKGD; Pregnancy, Urine Negative Negative
[2022-11-07 21:49] LABS: Anion Gap 7 (5-15); BUN 11 mg/dL (7-18); BUN/Creat Ratio 13.1 RATIO (10-20); Calcium,Total 8.8 mg/dL (8.5-10.1); Chloride 108 mmol/L (98-107); Creatinine, Serum 0.84 mg/dL (0.55-1.02); EST Glomerular Filtration Rate 91 mL/min (>60); Est Glom Filt Rate - Afr Amer 110 mL/min (>60); Glucose 92 mg/dL (74-106); Potassium 3.8 mmol/L (3.5-5.1); Sodium Level 140 mmol/L (136-145)
[2022-11-07 22:22] VITALS: RESP 16
== END 2022-11-07 22:22 | disposition home or self-care (01) ==
PROVIDERS: Emergency Provider Student in an Organized Health Care Education/Training Program; Visit Provider Student in an Organized Health Care Education/Training Program
DX: N83.01 Follicular cyst of right ovary (principal); F17.290 Nicotine dependence, other tobacco product, uncomplicated; Z90.79 Acquired absence of other genital organ(s)
CPT/HCPCS: 76830; 80048; 81025; 83880; 85025; 93976; 99282

== ENCOUNTER 2023-02-22 06:57 | Emergency (ER) | payer MEDICAID, SELFPAY ==
[2023-02-22 06:59] VITALS: BP 103/76; PULSE 142; RESP 15; TEMP 36.2; O2SAT 100
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
[2023-02-22 07:34] LABS: Absolute Lymphocyte Count 2.02 X10^3/uL (0.83-4.51); Absolute Neutrophil Count 7.2 X10^3/uL (2.0-7.7); Basophil# 0.02 X10^3/uL; Basophil% 0.2 % (0-1); Eosinophil# 0.03 X10^3/uL; Eosinophils% 0.3 % (0-5); Hematocrit 42.3 % (37-47); Hemoglobin 14.4 g/dL (12.0-15.0); Lymphocyte # 2.02 X10^3/ul (0.83-4.51); Lymphocyte % 20.7 % (19-41); Mean Corpuscular Hgb 31.2 pg (27.0-32.0); Mean Corpuscular Volume 91.6 fL (81-99); Mean Platelet Vol. 9.3 fl (6.2-12.0); Monocyte# 0.45 X10^3/uL; Monocyte% 4.6 % (0-10); NRBC Flagged by Analyzer 0 % (0-5); Neutrophil # 7.22 X10^3/uL (2.7-7.7); Neutrophil % 73.8 % (47-70); Platelet Count 291 K/mm3 (150-450); RBC Distribution Width CV 12.6 % (11.6-14.6); RBC Distribution Width SD 41.6 fl (35.1-43.9); Red Blood Count 4.62 M/mm3 (4.2-5.4); White Blood Count 9.8 K/mm3 (4.4-11.0)
[2023-02-22 07:50] LABS: Anion Gap 4 (5-15); BUN 9 mg/dL (7-18); BUN/Creat Ratio 14.2 RATIO (10-20); Calcium,Total 8.6 mg/dL (8.5-10.1); Chloride 112 mmol/L (98-107); Creatinine, Serum 0.63 mg/dL (0.55-1.02); EST Glomerular Filtration Rate 125 mL/min (>60); Est Glom Filt Rate - Afr Amer 151 mL/min (>60); Glucose 106 mg/dL (74-106); Potassium 3.7 mmol/L (3.5-5.1); Sodium Level 141 mmol/L (136-145)
[2023-02-22 08:01] LABS: Internal QC Validated? YES +Cl - CLEAR BKGD; Pregnancy, Serum, hCG Quali. NEGATIVE Negative
[2023-02-22 08:02] LABS: Record Kit Lot#, Serum Preg. HCG0000667200
[2023-02-22 08:16] LABS: Amphetamine Urine VISTA NEGATIVE (<1000 ng/mL); Barbiturate Urine VISTA NEGATIVE (< 200 ng/mL); Benzodiazepine Urine VISTA POSITIVE (< 200 ng/mL); Cocaine Urine VISTA NEGATIVE (< 300 ng/mL); Ecstacy Urine VISTA NEGATIVE (< 500 ng/mL); Methadone Urine VISTA NEGATIVE (< 300 ng/mL); PCP Urine VISTA NEGATIVE (< 25 ng/mL); THC Urine VISTA NEGATIVE (< 50 ng/mL); Vista UDS pH Range 4
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
[2023-02-22 10:58] VITALS: BMI 19.9
== END 2023-02-22 11:33 | disposition home or self-care (01) ==
LOC: ED 11:26
PROVIDERS: Emergency Provider Emergency Medicine; Visit Provider Emergency Medicine
DX: R45.851 Suicidal ideations (principal); F10.129 Alcohol abuse with intoxication, unspecified; F43.0 Acute stress reaction; F17.290 Nicotine dependence, other tobacco product, uncomplicated; Z79.899 Other long term (current) drug therapy
CPT/HCPCS: 36415; 80048; 80307; 82077; 84703; 85025; 99285

== ENCOUNTER 2023-08-07 16:42 | Emergency (ER) | payer MEDICAID, SELFPAY ==
[2023-08-07 16:42] VITALS: BP 105/68; PULSE 82; RESP 17; TEMP 36.2; O2SAT 100; BMI 19.5
--- NOTE | 2023-08-07 17:33 | ED.VIS.LOWEX ---
HPI History of Present Illness HPI Narrative: Patient presents with right knee pain that has been getting worse over the past 2 weeks. Patient states it began rather suddenly. Patient denies any trauma or injury. Patient states her pain has been constant. Patient describes it as a deep ache. Patient states it is worse with movement. Patient states it is better with ice. Patient admits to occasional tingling into her foot. Patient denies any weakness. Patient denies any fevers or chills. Chief Complaint: Lower Extremity Injury Informant: patient Onset/Context/Timing Onset: Weeks (2) Context: Sudden Onset Timing: Continuous Quality of Pain: Aching Location: Right knee Worsened by: Movement Relieved by: Ice Associated Symptoms Associated Symptoms: Positive for Parasthesia; Negative for Weakness or Loss of Funtion PFSH PFSH Medical History Anemia Anxiety Anxiety Depression Easy bruising Headache, migraine Heartburn Injury of head and neck Marijuana use Migraine Ovarian cyst depression Restless legs Shortness of breath on exertion Sterilization Substance abuse Syncope Vapes nicotine containing substance Home Medications aripiprazole 2 mg tablet 5 mg PO DAILY 02/22/23 [History Last Taken Unknown] fluoxetine 20 mg capsule 20 mg PO DAILY 02/22/23 [History Last Taken Unknown] hydroxyzine HCl 50 mg tablet 50 mg PO QHS 02/22/23 [History Last Taken Unknown] naproxen 500 mg tablet (Naprosyn) 500 mg PO BID PRN pain #20 tabs 08/07/23 [Rx Last Taken Unknown] Allergy/AdvReac Type Severity Reaction Status Date / Time peanut Allergy Intermediate Hives Verified 11/07/22 18:58 Penicillins Allergy Intermediate Hives Verified 11/07/22 18:58 Surgical History (Updated 08/07/23 @ 17:[address] James DO) Hx of tubal ligation Social History Smoking Status: Current every day smoker tobacco type: e-cigarettes ROS ROS ED Constitutional Constitutional ED: Denies chills or fever(s) Eyes Eyes: Denies blurry vision or change in vision ENT ENT ED: Denies rhinorrhea or sore throat Cardiovascular Cardiovascular: Denies chest pain or palpitations Respiratory/Chest Respiratory/Chest: Denies cough or dyspnea Gastrointestinal Gastrointestinal: Denies nausea or vomiting Genitourinary Genitourinary ED: Denies dysuria or hematuria Musculoskeletal Musculoskeletal: Denies back pain or neck pain Integumentary Denies abscess or rash Neurologic Neurologic: Reports headache(s); Denies weakness Allergic/Immunologic Allergic/Immunologic ED: Denies mouth swelling or urticaria EXAM Physical Exam Const Vital Signs: 08/07/23 16:42 Temperature 97.2 F L Temperature Source Temporal Pulse Rate 82 Respiratory Rate 17 Blood Pressure 105/68 Blood Pressure Mean 80 Pulse Ox 100 Oxygen Delivery Method Room Air Positive well nourished and well developed General Appearance ED: well developed and NAD HEENT Reports moist mucous membranes Neck full ROM and supple Extremity Extremity Narrative: There is tenderness over the medial aspect of the right knee over the proximal tibia. There is mild edema. There is no erythema or warmth noted. There is no fluctuance. There is no discharge or drainage. Range of motion of the right knee was slightly limited in all motions of the right knee secondary to pain. Pedal pulses are equal bilaterally. Sensation was intact to light touch in all digits. Capillary refills less than 2 seconds in all digits. Neuro oriented x3, CN's II-XII intact bilaterally, moves all extremities and no sensory deficits noted Sensorium / Orientation: alert Motor Exam: strength 5/5 throughout Psych mental status grossly normal MDM MDM MDM Narrative Medical decision making narrative: Nicotine cessation was discussed. Patient was advised that this is most likely a bursitis of the Pez anserine bursa. Patient was instructed to ice and elevate the right knee. Patient was instructed to follow-up with her primary care physician in 5 to 7 days. Patient was given a prescription for Naprosyn. Patient understood and was agreeable with the plan. All questions were answered. Discharge Plan Triage Chief Complaint: Lower Extremity Injury ED Provider: Lane James Dx/Rx/DC Orders Clinical Impression: Nicotine dependence, Pes anserinus bursitis of right knee Instructions: ED Bursitis Prescriptions: New naproxen [Naprosyn] 500 mg tablet 500 mg PO BID PRN (Reason: pain) Qty: 20 0RF No Action hydroxyzine HCl 50 mg tablet 50 mg PO QHS aripiprazole 2 mg tablet 5 mg PO DAILY fluoxetine 20 mg capsule 20 mg PO DAILY Primary Care Provider: Care Physician,No Primary Referrals: Lul Kelly MD [Med Staff - [employer]] - 5-7 Days Care Physician,No Primary [Primary Care Provider] - Disposition Disposition: Home, Self Care
[2023-08-07 18:02] VITALS: BP 105/68; PULSE 82; RESP 17; TEMP 36.2; O2SAT 100
== END 2023-08-07 18:03 | disposition home or self-care (01) ==
PROVIDERS: Emergency Provider Emergency Medicine; Visit Provider Emergency Medicine
DX: M71.561 Other bursitis, not elsewhere classified, right knee (principal); F17.290 Nicotine dependence, other tobacco product, uncomplicated; Z30.2 Encounter for sterilization; F32.A Depression, unspecified; F41.9 Anxiety disorder, unspecified; Z79.899 Other long term (current) drug therapy; Z98.51 Tubal ligation status
CPT/HCPCS: 99282

== ENCOUNTER 2023-09-24 00:46 | Emergency (ER) | payer MEDICAID, SELFPAY ==
[2023-09-24 10:45] LABS: Basophil% 0.4 % (0-1); Eosinophils% 1.1 % (0-5); Hematocrit 47.7 % (37-47); Hemoglobin 16.2 g/dL (12.0-15.0); Lymphocyte % 8.8 % (19-41); Mean Corpuscular Hgb 31.6 pg (27.0-32.0); Mean Corpuscular Volume 93.2 fL (81-99); Mean Platelet Vol. 9.6 fl (6.2-12.0); Neutrophil # 11.92 X10^3/uL (2.7-7.7); Neutrophil % 84.3 % (47-70); Platelet Count 278 K/mm3 (150-450); RBC Distribution Width CV 12.6 % (11.6-14.6); RBC Distribution Width SD 43.2 fl (35.1-43.9); Red Blood Count 5.12 M/mm3 (4.2-5.4); White Blood Count 14.2 K/mm3 (4.4-11.0)
[2023-09-24 10:46] LABS: BUN 13 mg/dL (7-18); Basophil# 0.06 X10^3/uL; Calcium,Total 9.9 mg/dL (8.5-10.1); Chloride 106 mmol/L (98-107); Creatinine, Serum 0.81 mg/dL (0.55-1.02); EST Glomerular Filtration Rate 94 mL/min (>60); Eosinophil# 0.15 X10^3/uL; Est Glom Filt Rate - Afr Amer 114 mL/min (>60); Glucose 114 mg/dL (74-106); Lymphocyte # 1.25 X10^3/ul (0.83-4.51); Monocyte# 0.71 X10^3/uL; Potassium 3.7 mmol/L (3.5-5.1); Sodium Level 137 mmol/L (136-145)
[2023-09-24 10:47] LABS: Anion Gap 8 (5-15)
--- NOTE | 2023-09-24 22:17 | ED.VIS.GI ---
HPI HPI - GI History of Present Illness Detail of Chief Complaint: Nausea, vomiting and diarrhea. Patient was seen during computer downtime. Informant: patient Abdominal Pain/Flank Pain Onset: Today Context: Gradual Onset Timing: Continuous Quality: Cramping Location: Diffuse Current Severity: Mild Maximum Severity: Mild Worsened by: Nothing Relieved by: Nothing Nausea/Vomiting/Emesis GI Symptom: Positive for Nausea and Vomiting Onset: Today Severity: Mild Diarrhea/Melena/Hematochezia GI Symptom: Positive for Diarrhea Onset: Today Stool Quality: Positive for Watery Severity: Severe Episodes: 30 Associated Symptoms Associated Symptoms: Negative for Dysuria, Frequency, Hematuria or Urgency Narrative Narrative: 23-year-old female no seen past medical history prior tubal ligation. States she started having nausea and vomiting around 7 PM and diarrhea all day. States I have had 30 episodes of diarrhea today. Small amount of blood in the last few bowel movements. No melena. No black stool. No blood thinners. Only mild abdominal cramping. No fever. No dysuria. Prior similar symptoms: No Recent Illness/Hospitalization: No PFSH PFSH Medical History Anxiety Substance abuse Marijuana use Anemia Easy bruising Restless legs Injury of head and neck Syncope Heartburn Shortness of breath on exertion Vapes nicotine containing substance Sterilization depression Depression Ovarian cyst Headache, migraine Migraine Anxiety Home Medications ?Medication ?Instructions ?Recorded ?Last Taken ?Type aripiprazole 2 mg tablet 5 mg PO DAILY 02/22/23 Unknown History fluoxetine 20 mg capsule 20 mg PO DAILY 02/22/23 Unknown History hydroxyzine HCl 50 mg tablet 50 mg PO QHS 02/22/23 Unknown History naproxen 500 mg tablet (Naprosyn) 500 mg PO BID PRN pain #20 tabs 08/07/23 Unknown Rx Allergy/AdvReac Type Severity Reaction Status Date / Time peanut Allergy Intermediate Hives Verified 11/07/22 18:58 Penicillins Allergy Intermediate Hives Verified 11/07/22 18:58 Surgical History Hx of tubal ligation Social History Smoking Status: Current every day smoker tobacco type: e-cigarettes ROS ROS ED ROS Narrative Nausea, vomiting and diarrhea. Abdominal cramping. Review of Systems ROS Unobtainable: Denies due to encephalopathy Constitutional Constitutional ED: Denies chills or fever(s) ENT ENT ED: Denies ear pain Cardiovascular Cardiovascular: Denies chest pain Respiratory/Chest Respiratory/Chest: Denies cough or dyspnea Gastrointestinal Gastrointestinal: Reports abdominal pain, diarrhea, nausea and vomiting; Denies constipation or melena Genitourinary Genitourinary ED: Denies dysuria or hematuria Musculoskeletal Musculoskeletal: Denies arthralgias or back pain Integumentary Denies abscess or Abrasions Neurologic Neurologic: Denies headache(s) Psychiatric Psychiatric: Denies anxiety or depression Endocrine Endocrinology: Denies polydipsia, polyphagia or polyuria Hematologic/Lymphatic Hematologic/Lymphatic: Denies easy bleeding, easy bruising or lymphadenopathy Allergic/Immunologic Allergic/Immunologic ED: Denies mouth swelling, tongue swelling or urticaria EXAM Physical Exam Narrative Exam Narrative: 23-year-old female no acute distress vital signs stable afebrile. H EENT exam shows dry mucous membranes. Otherwise unremarkable. Lungs clear. Heart regular rhythm no murmur. Abdomen soft nondistended normal bowel sounds without peritoneal signs. Patient moving all 4 extremities. She is awake alert. Skin is unremarkable. Const Positive well nourished and well developed; Negative for obese, cachectic, contractures or unkempt General Appearance ED: well developed and NAD; Negative for unkempt, cachectic, contractures or pallor Nutritional Appearance: Negative for cachectic or obese HEENT Reports dry mucous membranes normocephalic and atraumatic; Negative for trauma or tenderness Mouth ED: Yes dry mucous membranes Mouth: dry mucous membranes Eyes PERRL and EOMs intact bilaterally General Eye ED: Negative for pale conjunctiva or scleral icterus Neck no lymphadenopathy, supple and no JVD General: Negative for tenderness Carotids: Negative for other Lymph Lymphatic: Negative for other Resp normal respiratory effort and clear to auscultation bilaterally Effort and Inspection: Negative for respiratory distress Auscultation: Negative for rales, rhonchi or wheezes Cardio regular rate, regular rhythm, S1 normal heart sound, S2 normal heart sound and no murmurs Rate: Negative for bradycardia or tachycardic Rhythm: Negative for abnormal rhythm GI non-tender, non-distended and no masses Inspection: Negative for abdominal distention Auscultation: Negative for normoactive bowel sounds Palpation: soft; Negative for tender, guarding, mass, pulsatile mass or rebound tenderness present Back/Spine no CVA tenderness General Back: Negative for CVA tenderness Cervical Spine: Negative for cervical spine tenderness Thoracic Spine / Upper Back: Negative for thoracic spinal tenderness Lumbar Spine / Lower Back: Negative for lumbar spinal tenderness Coccyx: Negative for other Extremity full ROM General Extremety ED: Negative for edema, tenderness or other findings General Extremity: Negative for edema or other findings Neuro CN's II-XII intact bilaterally and moves all extremities Sensorium / Orientation: alert, oriented to person, oriented to place and oriented to time; Negative for orientation impaired, confused, lethargic or stuporous Motor Exam: strength 5/5 throughout; Negative for general weakness or strength abnormal Psych mental status grossly normal and thought process normal Appearance: Negative for unkempt Attitude: No agitated Mood & Affect: Negative for depressed, anxious or tearful Skin no wounds General Skin Exam: Negative for jaundice or pallor Lesions: no lesions Rashes: no rashes Trauma: Negative for abrasion Nails: Negative for discolored MDM MDM MDM Narrative Medical decision making narrative: 23-year-old female nausea vomiting diarrhea suspect viral gastroenteritis. She did have a small amount of blood but I think that was more from mucosal irritation. I do not think there is a significant GI bleed. She is IV fluids for dehydration. She needs Zofran for nausea. I will do screening labs due to the blood. She has had no recent travel or surgery. She has been advised. Repeat exam after the patient on IV fluids and Zofran she feels much better. Repeat abdominal exam is benign. She has had episodes of diarrhea here. She has had no vomiting here. She and her mom are comfortable with her being discharged home with Zofran. Increase her diet slowly. Follow-up as needed return if worse. History & Record Review Discussion w/independent historian: Patient and Family Lab Data Attestation: I reviewed the patient's lab results. Lab results narrative: CBC shows a white count of 14.2. H&H is 16.2 and 47. Platelets 278. Electrolytes unremarkable. Gap of 8. H&H 13.81 glucose of 114. Labs: Laboratory Results - last 24 hr 09/24/23 01:20 WBC 14.2 H RBC 5.12 Hgb 16.2 H Hct 47.7 H MCV 93.2 MCH 31.6 MCHC 34.0 RDW Std Deviation 43.2 RDW Coeff of Frances 12.6 Plt Count 278 MPV 9.6 Immature Gran % (Auto) 0.400 Neut % (Auto) 84.3 H Lymph % (Auto) 8.8 L [place] % (Auto) 5.0 Eos % (Auto) 1.1 Baso % (Auto) 0.4 Absolute Neuts (auto) Not Reportable Sodium 137 Potassium 3.7 Chloride 106 Carbon Dioxide 23.0 Anion Gap 8 BUN 13 Creatinine 0.81 Est GFR (MDRD) Af Amer 114 Est GFR (MDRD) Non-Af 94 BUN/Creatinine Ratio 16.0 Glucose 114 H Calcium 9.9 Discharge Plan Triage ED Provider: Pj Thorne Dx/Rx/DC Orders Clinical Impression: Viral gastroenteritis, Nausea, vomiting, and diarrhea, Acute dehydration Instructions: ED Dehydration (Adult), ED Gastroenteritis, Viral (Adult) Prescriptions: No Action hydroxyzine HCl 50 mg tablet 50 mg PO QHS aripiprazole 2 mg tablet 5 mg PO DAILY fluoxetine 20 mg capsule 20 mg PO DAILY naproxen [Naprosyn] 500 mg tablet 500 mg PO BID PRN (Reason: pain) Qty: 20 0RF Primary Care Provider: Care Physician,No Primary Print Language: French Disposition Disposition: Home, Self Care Discharge Date/Time: 09/24/23 03:36
== END 2023-09-24 03:36 | disposition home or self-care (01) ==
PROVIDERS: Emergency Provider Emergency Medicine; Visit Provider Emergency Medicine
DX: A08.4 Viral intestinal infection, unspecified (principal); E86.0 Dehydration; R19.7 Diarrhea, unspecified; Z98.51 Tubal ligation status; F32.A Depression, unspecified; Z79.899 Other long term (current) drug therapy; F17.290 Nicotine dependence, other tobacco product, uncomplicated
CPT/HCPCS: 80048; 85025; 96361; 96374; 99284; J7030; A4216; J2405

== ENCOUNTER → 2024-04-13 | Outpatient (CLI) | payer MEDICAID, SELFPAY | END | disposition home or self-care (01) | LOC: LABSPEC 10:23 | PROVIDERS: Referring Provider Nurse Practitioner Family; Visit Provider Nurse Practitioner Family | DX: R30.0 Dysuria (principal) | CPT/HCPCS: 87086; 87088 ==

== ENCOUNTER → 2024-06-30 | Outpatient (CLI) | payer MEDICAID, SELFPAY | END | disposition home or self-care (01) | PROVIDERS: Referring Provider Physician Assistant; Visit Provider Physician Assistant | DX: R30.0 Dysuria (principal) | CPT/HCPCS: 87086; 87088; 87491; 87591 ==

== ENCOUNTER 2024-07-18 06:20 | Emergency (ER) | payer MEDICAID, SELFPAY ==
[2024-07-18 06:21] VITALS: BP 105/83; PULSE 112; RESP 19; TEMP 36.6; O2SAT 100; BMI 22.4
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
== END 2024-07-18 08:05 | disposition home or self-care (01) ==
PROVIDERS: Emergency Provider Emergency Medicine; Visit Provider Emergency Medicine
DX: S20.219A Contusion of unspecified front wall of thorax, initial encounter (principal); S80.01XA Contusion of right knee, initial encounter; S80.02XA Contusion of left knee, initial encounter; F32.A Depression, unspecified; F41.9 Anxiety disorder, unspecified; F17.290 Nicotine dependence, other tobacco product, uncomplicated; V89.2XXA Person injured in unspecified motor-vehicle accident, traffic, initial encounter
CPT/HCPCS: 71046; 99284

== ENCOUNTER 2024-07-19 16:16 | Emergency (ER) | payer MEDICAID, SELFPAY ==
[2024-07-19 16:17] VITALS: BP 116/76; PULSE 118; RESP 14; TEMP 36.2; O2SAT 98; BMI 22.6
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
[2024-07-19 18:22] VITALS: BP 128/74; PULSE 76; RESP 18; TEMP 36.6; O2SAT 100
== END 2024-07-19 18:23 | disposition home or self-care (01) ==
PROVIDERS: Emergency Provider Emergency Medicine; PCP Family Medicine; Visit Provider Emergency Medicine
DX: S39.012A Strain of muscle, fascia and tendon of lower back, initial encounter (principal); F41.9 Anxiety disorder, unspecified; F32.A Depression, unspecified; S63.92XA Sprain of unspecified part of left wrist and hand, initial encounter; S06.0XAA Concussion with loss of consciousness status unknown, initial encounter; V89.2XXA Person injured in unspecified motor-vehicle accident, traffic, initial encounter; F17.290 Nicotine dependence, other tobacco product, uncomplicated
CPT/HCPCS: 70450; 72100; 72125; 73110; 99283

== ENCOUNTER 2024-10-02 13:06 | Emergency (ER) | payer MEDICAID, SELFPAY ==
[2024-10-02 13:07] VITALS: BP 113/65; PULSE 107; RESP 18; TEMP 36.4; O2SAT 98; BMI 22.8
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
--- NOTE | 2024-10-02 14:05 | RAD_ITS ---
EXAM: XR Left Clavicle Complete, 2 or More Views CLINICAL INDICATION: INJURY/PAIN TECHNIQUE: Frontal and lordotic views of the left clavicle. COMPARISON: No relevant prior studies available. FINDINGS: BONES/JOINTS: Comminuted mildly displaced fracture of the mid clavicle. No dislocation. SOFT TISSUES: Soft tissue swelling. RAD/Clavicle IMPRESSION: Comminuted mildly displaced fracture of the mid clavicle. Reading Location: [facility]
--- NOTE | 2024-10-02 14:05 | RAD_ITS ---
EXAM: XR Left Clavicle Complete, 2 or More Views CLINICAL INDICATION: INJURY/PAIN TECHNIQUE: Frontal and lordotic views of the left clavicle. COMPARISON: No relevant prior studies available. FINDINGS: BONES/JOINTS: Comminuted mildly displaced fracture of the mid clavicle. No dislocation. SOFT TISSUES: Soft tissue swelling. RAD/Clavicle IMPRESSION: Comminuted mildly displaced fracture of the mid clavicle. Reading Location: [facility]
== END 2024-10-02 15:42 | disposition home or self-care (01) ==
PROVIDERS: Emergency Provider Emergency Medicine; PCP Family Medicine; Visit Provider Emergency Medicine
DX: S42.002A Fracture of unspecified part of left clavicle, initial encounter for closed fracture (principal); F17.290 Nicotine dependence, other tobacco product, uncomplicated; W19.XXXA Unspecified fall, initial encounter
CPT/HCPCS: 73000; 99283

== ENCOUNTER 2024-11-30 01:37 | Emergency (ER) | payer MEDICAID, SELFPAY ==
[2024-11-30 01:39] VITALS: BP 107/77; PULSE 105; RESP 16; TEMP 36.6; O2SAT 98; BMI 22.1
--- NOTE | 2024-11-30 02:05 | ED.RN ---
Pt denies all suicidal ideation. Aurelia STEVEN wrote pink slip for pt due to concern for self harm. Friend of pt called ER anonymously and reported that pt had stated to her that she had a plan to overdose on fentanyl. Pt also posted on facebook she missed her father who had passed and just wanted to be with him.
[2024-11-30 02:10] LABS: Hematocrit 39.5 % (37-47); Hemoglobin 13.3 g/dL (12.0-15.0); Immature Granulocytes Count 0.020 X10^3/uL (0.0-0.0); Mean Corp Hgb Conc 33.7 g/dL (32-36); Mean Corpuscular Volume 96.1 fL (81-99); Mean Platelet Vol. 8.8 fl (6.2-12.0); NRBC Flagged by Analyzer 0 % (0-5); Platelet Count 277 K/mm3 (150-450); RBC Distribution Width CV 12.7 % (11.6-14.6); RBC Distribution Width SD 44.3 fl (35.1-43.9); Red Blood Count 4.11 M/mm3 (4.2-5.4); White Blood Count 7.5 K/mm3 (4.4-11.0)
[2024-11-30 02:21] LABS: Internal QC Validated? YES +Cl - CLEAR BKGD; Pregnancy, Serum, hCG Quali. NEGATIVE Negative
[2024-11-30 02:22] LABS: Record Kit Lot#, Serum Preg. 0000962302
[2024-11-30 02:40] LABS: Alcohol, Blood (Medical)-Serum 218.0 mg/dL (<=10.0); Anion Gap 12 (5-15); BUN 10 mg/dL (4-19); BUN/Creat Ratio 12.8 RATIO (10-20); Calcium,Total 8.8 mg/dL (7.6-11.0); Carbon Dioxide 22.7 mmol/L (21.0-32.0); Chloride 103 mmol/L (98-108); Estimated Creatinine Clearance 89.87 ml/min (50-250); Glucose 98 mg/dL (70-99); Potassium 3.8 mmol/L (3.3-5.1)
--- NOTE | 2024-11-30 03:09 | RAD_ITS ---
PROCEDURE: HAND MIN 3 VIEWS 11/30/2024 REASON FOR EXAM: TRAUMA TECHNIQUE: Procedure Code: HUMPHREY Modality: DX Procedure: HAND MIN 3 VIEWS Laterality: RIGHT. COMPARISON: None. FINDINGS: Normal visualized carpal bones. Normal first metacarpus. Normal second through fifth metacarpi. Normal phalanges. There is no demonstrated fracture. Normal carpal articulations. Normal carpometacarpal (CMC) articulation of the thumb. Normal metacarpophalangeal (MCP) joint of the thumb. Normal interphalangeal (IP) joint of the thumb. Normal second through fifth carpometacarpal (CMC) joints. Normal second through fifth metacarpophalangeal (MCP) joints. Normal proximal interphalangeal (PIP) and distal interphalangeal (DIP) joints of the second through fifth fingers. RAD/Hand Min 3 Views IMPRESSION: No evidence for acute abnormality. Reading Location[facility]
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
--- NOTE | 2024-11-30 03:15 | RAD_ITS ---
PROCEDURE: HAND MIN 3 VIEWS 11/30/2024 REASON FOR EXAM: TRAUMA TECHNIQUE: Procedure Code: HUMPHREY Modality: DX Procedure: HAND MIN 3 VIEWS Laterality: LEFT COMPARISON: None. FINDINGS: Normal visualized carpal bones. Normal first metacarpus. Normal second through fifth metacarpi. Normal phalanges. There is no demonstrated fracture. Normal carpal articulations. Normal carpometacarpal (CMC) articulation of the thumb. Normal metacarpophalangeal (MCP) joint of the thumb. Normal interphalangeal (IP) joint of the thumb. Normal second through fifth carpometacarpal (CMC) joints. Normal second through fifth metacarpophalangeal (MCP) joints. Normal proximal interphalangeal (PIP) and distal interphalangeal (DIP) joints of the second through fifth fingers. RAD/Hand Min 3 Views IMPRESSION: No evidence for acute abnormality. Reading [facility]
[2024-11-30 03:39] LABS: Barbiturate Urine NEGATIVE (< 200 ng/mL); Benzodiazepine Urine NEGATIVE (< 200 ng/mL); PCP Urine NEGATIVE (< 25 ng/mL); THC Urine NEGATIVE (< 50 ng/mL)
[2024-11-30 04:32] VITALS: BP 123/79; PULSE 87; RESP 19; TEMP 36.4; O2SAT 99
== END 2024-11-30 04:33 | disposition home or self-care (01) ==
PROVIDERS: Emergency Provider Emergency Medicine; PCP Family Medicine; Visit Provider Emergency Medicine
DX: F10.129 Alcohol abuse with intoxication, unspecified (principal); S00.83XA Contusion of other part of head, initial encounter; S60.221A Contusion of right hand, initial encounter; Y04.0XXA Assault by unarmed brawl or fight, initial encounter; Z63.79 Other stressful life events affecting family and household; F41.9 Anxiety disorder, unspecified; F32.A Depression, unspecified; F17.210 Nicotine dependence, cigarettes, uncomplicated; F17.290 Nicotine dependence, other tobacco product, uncomplicated
CPT/HCPCS: 36415; 73130; 80048; 80307; 82077; 84703; 85025; 99282

== ENCOUNTER 2025-01-28 15:15 | Emergency (ER) | payer MEDICAID, SELFPAY ==
[2025-01-28 15:17] VITALS: BP 118/81; PULSE 107; RESP 16; TEMP 36.1; O2SAT 100; BMI 24.8
--- NOTE | 2025-01-28 16:04 | ED.RN ---
[address] [place] [employer] AT BEDSIDE INTERVIEWING PT.
[2025-01-28 16:17] VITALS: BP 115/76; PULSE 102; RESP 20; O2SAT 98
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
--- NOTE | 2025-01-28 16:54 | RAD_ITS ---
PROCEDURE: RAD/Chest PA and Lateral
[2025-01-28 17:00] VITALS: BP 121/72; PULSE 101; RESP 16; O2SAT 98
[2025-01-28 17:42] VITALS: BP 114/82; PULSE 83; RESP 14; TEMP 36.6; O2SAT 98
== END 2025-01-28 17:43 | disposition home or self-care (01) ==
PROVIDERS: Emergency Provider Emergency Medicine; PCP Family Medicine; Visit Provider Emergency Medicine
DX: S20.213A Contusion of bilateral front wall of thorax, initial encounter (principal); Y04.8XXA Assault by other bodily force, initial encounter; Z98.51 Tubal ligation status; F17.290 Nicotine dependence, other tobacco product, uncomplicated
CPT/HCPCS: 71046; 99283